=== PATIENT | female | born 1945 | race Caucasian/White ===

== ENCOUNTER 2018-02-04 08:04 | Emergency (ER) | payer OTHER, MEDICARE ==
[2018-02-04] MEDS: ONDANSETRON PF 4 MG/2 ML VIAL. IV (08:51)
[2018-02-04 09:07] LABS: ADD MAN DIFF? NO; BASO % 1 % (0-3); EOS # 0.1 x10^3/uL (0.0-0.7); EOS % 1 % (0-3); HEMATOCRIT 45.6 % (36.0-47.0); HEMOGLOBIN 15.4 g/dL (12.0-15.5); LYMPH # 1.5 x10^3/uL (1.0-4.8); LYMPH % 24 % (24-48); MEAN CORPUSCULAR HEMOGLOBIN 30 pg (25-35); MEAN CORPUSCULAR HGB CONC 34 g/dL (31-37); MEAN CORPUSCULAR VOLUME 89 fL (79-100); MONO # 0.3 x10^3/uL (0.0-1.1); MONO % 4 % (0-9); NEUT # 4.4 x10^3uL (1.8-7.7); NEUT % 70 % (31-73); PLATELET COUNT 176 x10^3/uL (140-400); RED BLOOD COUNT 5.11 x10^6/uL (3.50-5.40); RED CELL DISTRIBUTION WIDTH 14.4 % (11.5-14.5); WHITE BLOOD COUNT 6.3 x10^3/uL (4.0-11.0)
[2018-02-04 09:31] LABS: ANION GAP 15 (6-14); BLOOD UREA NITROGEN 16 mg/dL (7-20); BUN/CREATININE RATIO 13 (6-20); CALCIUM 9.4 mg/dL (8.5-10.1); CARBON DIOXIDE 23 mmol/L (21-32); CHLORIDE 105 mmol/L (98-107); CREATININE 1.2 mg/dL (0.6-1.0); GLUCOSE 178 mg/dL (70-99); POTASSIUM 3.6 mmol/L (3.5-5.1); SODIUM 143 mmol/L (136-145)
[2018-02-04 09:35] LABS: ALBUMIN 3.5 g/dL (3.4-5.0); ALBUMIN/GLOBULIN RATIO 0.9 (1.0-1.7); ALK PHOS 113 U/L (46-116); ALT (SGPT) 39 U/L (14-59); AST (SGOT) 35 U/L (15-37); TOTAL BILIRUBIN 0.8 mg/dL (0.2-1.0); TOTAL PROTEIN 7.4 g/dL (6.4-8.2)
[2018-02-04] MEDS: METOCLOPRAMIDE HCL 10 MG/2 ML VIAL. IV (10:30)
[2018-02-04] MEDS: cloNIDine HCL 0.1 MG TABLET PO (10:31)
[2018-02-04] MEDS: IV NORMAL SALINE 1000ML BAG 1,000 ML IV ×2 (10:33→12:05)
[2018-02-04 11:31] LABS: BILIRUBIN,URINE NEGATIVE (NEG); CLARITY,URINE CLEAR; COLOR,URINE YELLOW; GLUCOSE,URINE NEGATIVE (NEG); NITRITE,URINE NEGATIVE (NEG); PH,URINE 6.5; PROTEIN,URINE 100 mg/dL (NEG-TRACE)
[2018-02-04 11:44] LABS: BACTERIA,URINE FEW /HPF (0-FEW); SQUAMOUS EPITHELIAL CELL,UR MOD /LPF
== END 2018-02-04 13:01 | disposition home or self-care (01) ==
LOC: ER 08:04
DX: N39.0 Urinary tract infection, site not specified (principal); I10 Essential (primary) hypertension; F32.9 Major depressive disorder, single episode, unspecified; E78.00 Pure hypercholesterolemia, unspecified; Z90.49 Acquired absence of other specified parts of digestive tract; Z88.2 Allergy status to sulfonamides; Z88.7 Allergy status to serum and vaccine
CPT/HCPCS: 36415; 70450; 80053; 81001; 85025; 87086; 93005; 96361; 96374; 96375; 99285-25; J2405; J2765; J7030

== ENCOUNTER → 2020-03-09 | Outpatient (CLI) | payer OTHER ==
[2018-02-04 12:50] VITALS: BP 179/100
[~2020-03-09] MED LIST: NITR100C62 PO; ONDA4TAB10 SL
--- NOTE | 2020-03-09 12:40 | CARD ---
MR#: [id number] Date of Study: 03/09/2020 Ordering Physician: SHALINI CAMARGO, Referring Physician: SHALINI CAMARGO Tech: Fransisca Quiñones [facility] APPROVED REPORT EXAM: Two-dimensional and M-mode echocardiogram with Doppler and color Doppler. Other Information Quality : LimitedHR: 72bpm Rhythm : NSRTechnically limited study due to body habitus. INDICATION Hypertension/HCVD Murmur RISK FACTORS Hypertension Obesity Hyperlipidemia 2D DIMENSIONS RVDd3.1 (2.9-3.5cm)Left Atrium(2D)5.5 (1.6-4.0cm) IVSd1.4 (0.7-1.1cm)Aortic Root(2D)3.6 (2.0-3.7cm) LVDd5.0 (3.9-5.9cm)LVOT Diameter2.4 (1.8-2.4cm) PWd1.4 (0.7-1.1cm)LVDs3.2 (2.5-4.0cm) FS (%) 36.5 %SV78.3 ml LVEF(%)66.0 (>50%) Aortic Valve AoV Peak Hunter.151.0cm/sAoV VTI32.1cm AO Peak GR.9.1mmHgLVOT Peak Hunter.130.5cm/s AO Mean GR.4mmHgAVA (VMAX)3.91cm2 Mitral Valve MV E Dhfpzxjf52.5cm/sMV DECEL RPEY103gz MV A Cxvwmusb922.3cm/sE/A Ratio0.7 MV A Plzrkziw611jz Tricuspid Valve TR P. Uzalzukc849me/sTR Peak Gr.29mmHg Pulmonary Vein S1 Wnxtqbjb81.8cm/sD2 Kanqrpgf58.3cm/s PVa grseedpm970lvpv LEFT VENTRICLE The left ventricle is normal size. There is mild concentric left ventricular hypertrophy. The left ve ntricular systolic function is normal and the ejection fraction is within normal range. Estimated ej ection fraction 55-60%. There is normal LV segmental wall motion. The left ventricular diastolic func tion and filling is normal for age. RIGHT VENTRICLE The right ventricle is normal size. There is normal right ventricular wall thickness. The right ventr icular systolic function is normal. ATRIA The left atrium size is normal. The right atrium size is normal. The interatrial septum is intact wit h no evidence for an atrial septal defect or patent foramen ovale as noted on 2-D or Doppler imaging. AORTIC VALVE The aortic valve is normal in structure and function. Doppler and Color Flow revealed no significant aortic regurgitation. There is no significant aortic valvular stenosis. MITRAL VALVE The mitral valve is minimally calcified but opens well. Doppler and Color-flow revealed mild mitral r egurgitation. TRICUSPID VALVE The tricuspid valve is normal in structure and function. Doppler and Color Flow revealed mild tricusp id regurgitation. Estimated PAP 32mmHg. PULMONIC VALVE The pulmonary valve is normal in structure and function. Doppler and Color Flow revealed no pulmonic valvular regurgitation. GREAT VESSELS Mild aorta dilitation. The IVC is normal in size and collapses >50% with inspiration. PERICARDIAL EFFUSION There is no evidence of significant pericardial effusion. Critical Notification Critical Value: No <Conclusion> The left ventricle is normal size. The left ventricular systolic function is normal and the ejection fraction is within normal range. Estimated ejection fraction 55-60%. There is mild concentric left ventricular hypertrophy. Doppler and Color Flow revealed no significant aortic regurgitation. There is no significant aortic valvular stenosis. Doppler and Color-flow revealed mild mitral regurgitation. Doppler and Color Flow revealed mild tricuspid regurgitation. Estimated PAP 32mmHg. Mild aorta dilitation. Signed by : Wil Moreira MD Electronically Approved : 03/09/2020 12:40:19
--- NOTE | 2020-03-09 17:28 | RAD ---
MR#: [id number] Date of Study: 03/09/2020 Ordering Physician: SHALINI CAMARGO, Referring Physician: SHALINI CAMARGO, Tech: Jemima Trujillo RDMS, RVT, RTR APPROVED REPORT Patient Location : OUT-PATIENT Indications Lower Extremity Edema : Bilateral Bilateral Leg Discoloration Greater Saphenous Veins (GSV) Significant venous relux noted in the RIGHT GSV at the following levels : Superficial Femoral Junctio n, Proximal Thigh, Mid Thigh, Distal Thigh, Proximal Calf, Mid Calf, Distal Calf Significant venous relux noted in the LEFT GSV at the following levels : Superficial Femoral Junction , Proximal Thigh, Mid Thigh, Distal Thigh, Proximal Calf, Mid Calf, Distal Calf Findings Grayscale images of the bilateral saphenofemoral junctions are grossly unremarkable. No obvious evid ence of thrombus. The right great saphenous vein measures 4.1 mm and has a maximum reflux time of 1.7 seconds. The lef t great saphenous vein measures a maximum of 3.8 mm and has a maximum reflux time of 3 seconds. Bilateral lesser saphenous veins did not show any evidence of reflux. Critical Notification Critical Value: No <Conclusion> 1. Positive for reflux in the bilateral greater saphenous veins. Signed by : Carlos Alberto Westbrook, Electronically Approved : 03/09/2020 17:28:07
== END ==
LOC: ECHO 10:33
PROVIDERS: ATTEND Internal Medicine Cardiovascular Disease
DX: I08.1 Rheumatic disorders of both mitral and tricuspid valves (principal); R60.9 Edema, unspecified
CPT/HCPCS: 93306; 93970

== ENCOUNTER → 2020-07-04 | Outpatient (CLI) | payer MEDICARE ==
[2018-02-04 12:50] VITALS: BP 179/100
--- NOTE | 2020-07-04 13:54 | RAD ---
Examination: Ultrasound kidneys History :acute renal failure COMPARISON: None available FINDINGS: The right kidney measures 9.4 x 4.0 x 3.7 cm. Thin right renal parenchyma. The left kidney measures 10.1 x 4.0 x 5.5 cm. Examination is limited due to patient body habitus. There is a questionable heterogeneous echogenicity measuring 3.8 x 2.8 x 3.1 cm with some increased vascular flow within could be a left renal mass. The urinary bladder is mildly distended. IMPRESSION: 1. There is a questionable heterogeneous echogenicity measuring 3.8 x 2.8 x 3.1 cm with some increased vascular flow within could be a left renal mass. Recommend CT urogram for further evaluation. Electronically signed by: Ant Mello MD (07/04/2020 1:51 PM) [id number]
== END | disposition home or self-care (01) ==
LOC: US 09:42
PROVIDERS: ATTEND Internal Medicine Nephrology
DX: N17.9 Acute kidney failure, unspecified (principal); N32.89 Other specified disorders of bladder
CPT/HCPCS: 76770

== ENCOUNTER → 2020-10-26 | Outpatient (CLI) | payer MEDICARE ==
[2018-02-04 12:50] VITALS: BP 179/100
--- NOTE | 2020-10-26 17:39 | RAD ---
MR#: [id number] Date of Study: 10/26/2020 Ordering Physician: SHALINI CAMARGO, Referring Physician: SHALINI CAMARGO, Tech: Jemima Trujillo RDMS, RVT, RTR APPROVED REPORT Bilateral Lower Extremity Venous Study for DVT Patient Location: OUT-PATIENT Indications Post Op Bilateral GSV Venaseal Ablation; Venous Insufficiency Findings The bilateral lower extremity deep veins were evaluated for thrombus with color Doppler, spectral and grayscale images. On the right the grayscale images of the common femoral, superficial femoral and popliteal veins do n ot demonstrate any evidence of thrombus and these veins appear to be compressible. The below-knee vei ns were not well visualized but grossly appear to be compressible. Spectral imaging and color Doppler do not reveal any evidence of obstruction to flow with normal respirophasic variation above the knee . Below the knee there is spontaneous flow noted. On the left, the grayscale images of the common femoral, superficial femoral and popliteal veins do n ot demonstrate any evidence of thrombus and these veins appear to be compressible. The below-knee vei ns again were not well visualized but grossly appear to be compressible. Spectral imaging and color D oppler do not reveal any evidence of obstruction to flow with normal respirophasic variation above th e knee. The below-knee veins demonstrate spontaneous flow. Bilateral GSV occluded, consistent with recent ablation. Critical Notification Critical Value: No <Conclusion> 1. No evidence of DVT in the BLE 2. Successful bilateral GSV ablations. Signed by : Carlos Alberto Westbrook, Electronically Approved : 10/26/2020 17:38:29
== END ==
LOC: US 10:34
PROVIDERS: ATTEND Internal Medicine Cardiovascular Disease
DX: I87.323 Chronic venous hypertension (idiopathic) with inflammation of bilateral lower extremity (principal); I87.2 Venous insufficiency (chronic) (peripheral)
CPT/HCPCS: 93970

== ENCOUNTER → 2021-05-25 | Outpatient (CLI) | payer MEDICARE ==
[2018-02-04 12:50] VITALS: BP 179/100
--- NOTE | 2021-05-25 15:27 | RAD ---
EXAM: Renal sonogram. HISTORY: Renal insufficiency. TECHNIQUE: Sonographic imaging the kidneys and bladder was performed. COMPARISON: 07/04/2020. FINDINGS: The right kidney measures 10.5 cm hbzi-jv-rftl. The left kidney measures 12.9 cm pole-to-po le. There is right renal cortical thinning. There is left renal cortical lobulation. The previously s uspected left renal mass is not reproducible on the current exam. The bladder is unremarkable. IMPRESSION: 1. Mild right renal cortical thinning. 2. Left renal cortical lobulation. The previously suspected left renal mass is not appreciated on the current exam. Renal protocol CT or MRI can be performed to confirm benignity if there is clinical co ncern. Electronically signed by: Ginna Hummel MD (05/25/2021 3:25 PM) [id number]
== END ==
LOC: US 14:25
PROVIDERS: ATTEND Urology
DX: N28.9 Disorder of kidney and ureter, unspecified (principal)
CPT/HCPCS: 76770

== ENCOUNTER 2021-11-29 17:32 | Inpatient (IN) | payer MEDICARE ==
[~2021-11-29] VITALS: Ht 170.2 cm; Wt 126.4 kg
--- NOTE | 2021-11-29 18:08 | PHYS DOC ---
Past Medical History Past Medical History: Depression, High Cholesterol, Hypertension Past Surgical History: Cholecystectomy, Other Additional Past Surgical Histo: d&c Smoking Status: Current Every Day Smoker Drug Use: None General Adult EDM: Chief Complaint: SHORTNESS OF BREATH HPI: HPI: 76-year-old female past medical history of chronic venous insufficiency, COPD/tobacco use, hypertension, hyperlipidemia depression, presents to the ED with complaints of shortness of breath, productive cough, bilateral upper chest tightness and one episode of posttussive vomiting, symptoms for the past 4 to 5 days stating " I think I have pneumonia." Is not vaccinated for COVID. On no home oxygen. Per ems was 55% RA. No h/o hospitalizations in the past year. No relief with her inhaler at home. Review of Systems: Review of Systems: Constitutional: Denies fever or chills. [] Eyes: Denies change in visual acuity. [] HENT: Denies nasal congestion or sore throat. [] Respiratory: Denies hemoptysis or increased work of breathing Cardiovascular: Denies syncope or edema. [] GI: Denies abdominal pain, bloody stools or diarrhea. [] : Denies dysuria or hematuria Musculoskeletal: Denies back pain or joint pain or unilateral leg swelling Integument: Denies rash or diaphoresis Neurologic: Denies headache, focal weakness or sensory changes. [] Endocrine: Denies polyuria or polydipsia. [] Lymphatic: Denies swollen glands. [] Psychiatric: Denies depression or anxiety. [] Heart Score: C/O Chest Pain: Yes HEART Score for Chest Pain: HEART Score for Chest Pain Response (Comments) Value History Slighlty/Non-Suspicious 0 ECG Normal 0 Age > 65 2 Risk Factors >3 Risk Factors or Hx CAD 2 Troponin >1-<3x Normal Limit 1 Total 5 Risk Factors: Risk Factors: DM, Current or recent (<one month) smoker, HTN, HLP, family history of CAD, obesity. Risk Scores: Score 0 - 3: 2.5% MACE over next 6 weeks - Discharge Home Score 4 - 6: 20.3% MACE over next 6 weeks - Admit for Clinical Observation Score 7 - 10: 72.7% MACE over next 6 weeks - Early Invasive Strategies Allergies: Allergies: Allergies Coded Allergies Type Severity Reaction Last Updated Verified Sulfa (Sulfonamide Antibiotics) Allergy Intermediate rash 02/04/18 Yes Tetanus Vaccines and Toxoid Allergy Intermediate arm swelling 02/04/18 Yes Physical Exam: PE: Constitutional: No acute distress, afebrile, nontoxic-appearing, obese HENT: Normocephalic, atraumatic, dry mucous membranes, no pharyngeal erythema Eyes: EOMI, conjunctiva normal, no discharge, left eye chemosis Neck: Normal range of motion, supple, Cardiovascular: S1/2 present, regular rhythm Lungs & Thorax: Speaking in full sentences, bilateral equal chest rise, diffuse instrument expiratory wheezing, hypoxic in 80's requiring NC Abdomen: soft, no tenderness, Skin: Warm, dry, no erythema, no rash. [] Back: No tenderness, no CVA tenderness. [] Extremities: No tenderness, no cyanosis, no unilateral lower extremity edema Neurologic: Alert and oriented, normal motor function, normal sensory function, no focal deficits noted. [] Psychologic: Calm mood, normal affect EKG: EKG: Sinus rhythm 79 bpm, left axis deviation, QTC 469, no T wave inversion, no ST elevation or ST depression Radiology/Procedures: Radiology/Procedures: IMAGING REPORT Signed PATIENT: NICA STEPHENS ACCOUNT: [id number] : 1945 LOCATION: ER AGE: 76 SEX: F EXAM STATUS: REG ER ORD. PHYSICIAN: SKINNY PLAZA DO REASON: soa PROCEDURE: PORTABLE CHEST 1V Exam: Chest one view INDICATION: Short of air TECHNIQUE: Frontal view of the chest Comparisons: None FINDINGS: The cardiomediastinal silhouette and pulmonary vessels are within normal limits. Hazy opacity in lungs bilaterally. No pleural effusion IMPRESSION: Findings likely related to pulmonary edema or atypical infectious process. Electronically signed by: Dianne Moran MD (11/29/2021 6:44 PM) [facility] DICTATED and SIGNED BY: DIANNE MORAN MD DATE: 11/29/21 [id number] 0 Course & Med Decision Making: Course & Med Decision Making Pertinent Labs and Imaging studies reviewed. (See chart for details) Concern for hypoxia for nasal cannula, COPD exacerbation, nstemi, acute on gis software developer oscrates kidney disease and elevated D-dimer. Will order venous ultrasound of lower extremities and VQ scan. Will admit to Dr. Tavares for further medical management. Patient stable at time of admission agrees with this plan. I have spoken with the patient and/or caregivers. I have explained the patient's condition, diagnosis and treatment plan based on the information available to me at this time. I have answered the patient's and/or caregivers questions and answered any concerns. The patient and/or caregivers have as good an understanding of the patient's diagnosis, condition and treatment plan as can be expected at this point. The patient has been stabilized within the capability of the emergency department. The patient will be transported for further care and management or will be moved to an observation or inpatient service. I have communicated with the staff or medical practitioner taking over this patient's care. Murphy Disclaimer: Murphy Disclaimer: This electronic medical record was generated, in whole or in part, using a voice recognition dictation system. Departure Departure Impression: Primary Impression: Hypoxemia requiring supplemental oxygen Additional Impressions: COPD exacerbation Acute kidney injury superimposed on chronic kidney disease Elevated d-dimer Person under investigation for COVID-19 NSTEMI (non-ST elevated myocardial infarction) Disposition: ADMITTED INPATIENT Admitting Physician: Miracle Tavares Condition: STABLE Referrals: MIRACLE TAVARES MD (PCP) SKINNY PLAZA DO Nov 29, 2021 18:08
[2021-11-29] MEDS ORDERED: DEXAMETHASONE SOD PHOS 20 MG/5 ML VIAL. IV ONE (18:15)
[2021-11-29] MEDS ORDERED: IPRATRPIUM/ALBUTEROL 0.5/2.5MG 3 ML NEBU. NEB ONE (18:15)
[2021-11-29 18:27] LABS: BASO % 0 % (0-3); EOS % 0 % (0-3); HEMATOCRIT 39.3 % (36.0-47.0); HEMOGLOBIN 13.2 g/dL (12.0-15.5); LYMPH % 10 % (24-48); MEAN CORPUSCULAR HEMOGLOBIN 30 pg (25-35); MEAN CORPUSCULAR HGB CONC 34 g/dL (31-37); MEAN CORPUSCULAR VOLUME 89 fL (79-100); MONO % 10 % (0-9); NEUT # 7.9 x10^3/uL (1.8-7.7); NEUT % 80 % (31-73); PLATELET COUNT 207 x10^3/uL (140-400); RED BLOOD COUNT 4.42 x10^6/uL (3.50-5.40); RED CELL DISTRIBUTION WIDTH 13.9 % (11.5-14.5); WHITE BLOOD COUNT 9.8 x10^3/uL (4.0-11.0)
[2021-11-29] MEDS ORDERED: cefTRIAXone IV Push 1 GM VIAL. IVP ONE (18:30)
[2021-11-29] MEDS ORDERED: ONDANSETRON PF 4 MG/2 ML VIAL. IVP ONE (18:30)
[2021-11-29] MEDS ORDERED: AZITHROMYCIN 250 MG TABLET. PO ONE (18:30)
[2021-11-29] MEDS ORDERED: IV NORMAL SALINE 1000ML BAG 1,000 ML IV ONE (18:30)
[2021-11-29 18:40] LABS: CALCIUM 8.6 mg/dL (8.5-10.1); CREATININE 1.7 mg/dL (0.6-1.0); GFR 29.1; POTASSIUM 3.8 mmol/L (3.5-5.1)
[2021-11-29 18:42] LABS: INFLUENZA A PATIENT NEGATIVE (NEGATIVE); INFLUENZA B PATIENT NEGATIVE (NEGATIVE)
[2021-11-29 18:46] LABS: ALBUMIN 2.6 g/dL (3.4-5.0); ALBUMIN/GLOBULIN RATIO 0.5 (1.0-1.7); TOTAL BILIRUBIN 0.4 mg/dL (0.2-1.0); TOTAL PROTEIN 7.4 g/dL (6.4-8.2)
--- NOTE | 2021-11-29 18:47 | RAD ---
Exam: Chest one view INDICATION: Short of air TECHNIQUE: Frontal view of the chest Comparisons: None FINDINGS: The cardiomediastinal silhouette and pulmonary vessels are within normal limits. Hazy opacity in lungs bilaterally. No pleural effusion IMPRESSION: Findings likely related to pulmonary edema or atypical infectious process. Electronically signed by: Dianne Mayo MD (11/29/2021 6:44 PM) RICA
[2021-11-29] MEDS ORDERED: FUROSEMIDE 40 MG TABLET. PO ONE (19:30)
--- NOTE | 2021-11-29 20:51 | RAD ---
Bilateral lower extremity venous Doppler ultrasound History: Reason: leg swelling Comparison: None. Procedure: Color flow Doppler, Doppler spectral analysis, and 2D images are obtained with and without compression in the area of the common femoral vein, superficial femoral vein - femoral vein junction , main femoral vein (superficial femoral vein) and popliteal vein. Veins of the proximal calf are als o imaged. Findings: There is normal color flow, augmentation, and compressibility of all visualized vein segments. No kenan dence of deep venous thrombus is present. IMPRESSION: No evidence of right or left lower extremity deep venous thrombosis. Electronically signed by: Naga Hartmann MD (11/29/2021 8:49 PM) [facility]
[2021-11-29 21:22] LABS: BASE EXCESS ABG 0 mmol/L (-3-3); HCO3 ABG 29 mmol/L (21-28); PO2 ABG 63 mmHg (65-108); SAT O2 ABG 90 % (92-99)
[2021-11-29 21:23] LABS: PCO2 ABG 70 mmHg (35-46)
[2021-11-29 22:06] VITALS: BP 184/93
[2021-11-29] MEDS ORDERED: CYCL10TA19 PO (22:52)
[2021-11-29] MEDS ORDERED: MOME13HF2 IH (22:52)
[2021-11-29] MEDS ORDERED: LEVO137T3 PO (22:52)
[2021-11-29] MEDS ORDERED: MIRT-7 PO (22:52)
[2021-11-29] MEDS ORDERED: AMLO-187 PO (22:52)
[2021-11-29] MEDS ORDERED: SERT-268 PO (22:52)
[2021-11-29] MEDS ORDERED: ATOR20TA58 PO (22:52)
[2021-11-29] MEDS ORDERED: PROVENTIL HFA6.7 G2 INH (22:52)
[2021-11-29] MEDS ORDERED: CLON0.5T PO (22:52)
[2021-11-29] MEDS ORDERED: ALBUTEROL SULFATE 8GM INHALER. INH PRN (23:45)
[2021-11-30 02:27] VITALS: BP_SYST 184; BP_SYST 196; BP_DIAS 93; BP_DIAS 94
[2021-11-30 07:00] VITALS: BP 176/92
--- NOTE | 2021-11-30 07:42 | EKG ---
[facility] [address] [place] [address] Test Date: 2021-11-29 Test Time: 17:59:22 Pat Name: NICA STEPHENS Department: Room: [facility] Gender: F Pharmacy Clinical Specialist: : 1945 Requested By: SKINNY PLAZA Order Number: [id number] Reading MD: Carlos Alberto Westbrook MD Measurements Intervals Marquez Rate: 79 P: -12 SD: 170 QRS: -22 QRSD: 108 T: 126 QT: 408 QTc: 469 Interpretive Statements SINUS RHYTHM Electronically Signed On 12-04-2021 11:16:51 [employer] by Carlos Alberto Westbrook MD
[2021-11-30] MEDS: ALBUTEROL SULFATE 8GM INHALER. INH SCH ×4 (08:00→19:59)
[2021-11-30] MEDS: BUDESONIDE 0.5 MG/2 ML NEBU. NEB SCH ×2 (08:00→19:59)
[2021-11-30] MEDS: CYCLOBENZAPRINE 10 MG TABLET. PO SCH ×4 (08:46→20:50)
[2021-11-30] MEDS: clonazePAM 0.5 MG TABLET PO SCH ×2 (08:46→20:50)
[2021-11-30] MEDS: SERTRALINE 50 MG TABLET. PO SCH (08:47)
[2021-11-30] MEDS: LEVOTHYROXINE 137 MCG TABLET PO SCH (10:07)
[2021-11-30 10:14] VITALS: BP 155/76
[2021-11-30] MEDS ORDERED: FUROSEMIDE 40 MG/4 ML VIAL. IVP ONE (10:30)
--- NOTE | 2021-11-30 10:36 | PDOC2 ---
THONY LOW BEVELER 11/30/21 1035: CARDIAC CONSULT DATE OF CONSULT Date of Consult DATE: 11/30/21 TIME: 10:09 REASON FOR CONSULT Reason for Consult: NSTEMI REFERRING PHYSICIAN Referring Physician: [facility] SOURCE Source: Chart review, Patient HISTORY OF PRESENT ILLNESS HISTORY OF PRESENT ILLNESS This is a 76 yo female admitted for complains of SOA and productive cough. Also had some chest pain and vomiting. She is not vaccinated for covid-19. She was then noted to be hypoxic on RA with 55% O2 sat. Denies any chest pain and feels better now overnight after bipap. No significnat leg swelling and no fever. She has been coughing thick yellow sputum. No prior exposure to covid-19 and she is not vaccinated for covid-19. PAST MEDICAL HISTORY Cardiovascular: HTN, Hyperlipidemia, Other (venous insuffiicency) Psych: Depression Musculoskeletal: Osteoarthritis Renal/: Chronic renal insuff Dermatology: Other (sskin CA unknwon) PAST SURGICAL HISTORY Past Surgical History: Cholecystectomy, Other (D & C; venous ablation) FAMILY HISTORY Family History: Coronary Artery Disease SOCIAL HISTORY Smoke: <1 pack per day ALCOHOL: none Drugs: None Lives: with Family CURRENT MEDICATIONS CURRENT MEDICATIONS Current Medications Medications (Trade) Dose Ordered Sig/Eitan Route PRN Reason Start Time Stop Time Status Last Admin Dose Admin Dexamethasone Sodium Phosphate (Decadron) 10 mg 1X ONCE IV 11/29/21 18:15 11/29/21 18:16 DC 11/29/21 19:31 Albuterol/ Ipratropium (Duoneb) 9 ml 1X ONCE NEB 11/29/21 18:15 11/29/21 18:16 DC 11/29/21 18:35 Ceftriaxone Sodium (Rocephin) 1 gm 1X ONCE IVP 11/29/21 18:30 11/29/21 18:31 DC 11/29/21 19:31 Azithromycin (Zithromax) 500 mg 1X ONCE PO 11/29/21 18:30 11/29/21 18:31 DC 11/29/21 19:32 Sodium Chloride 1,000 ml @ 1,000 mls/hr 1X ONCE IV 11/29/21 18:30 11/29/21 19:29 DC 11/29/21 19:32 Ondansetron HCl (Zofran) 4 mg 1X ONCE IVP 11/29/21 18:30 11/29/21 18:31 DC 11/29/21 19:31 Furosemide (Lasix) 40 mg 1X ONCE PO 11/29/21 19:30 11/29/21 19:31 DC 11/29/21 19:32 Amlodipine Besylate (Norvasc) 10 mg DAILY PO 11/30/21 09:00 11/30/21 08:46 Clonazepam (KlonoPIN) 0.5 mg BID PO 11/30/21 09:00 11/30/21 08:46 Cyclobenzaprine HCl (Flexeril) 10 mg TID PO 11/30/21 09:00 11/30/21 08:46 Levothyroxine Sodium (Synthroid) 137 mcg DAILYAC PO 11/30/21 07:30 11/30/21 10:07 Sertraline HCl (Zoloft) 150 mg DAILY PO 11/30/21 09:00 11/30/21 08:47 ALLERGIES ALLERGIES: Coded Allergies: Sulfa (Sulfonamide Antibiotics) (Verified Allergy, Intermediate, rash, 02/04/18) Tetanus Vaccines and Toxoid (Verified Allergy, Intermediate, arm swelling, 02/04/18) ROS Review of System 14 point ROS evaluated with pertinent positives noted per HPI PHYSICAL EXAM General: Alert, Oriented X3, Cooperative, No acute distress HEENT: Atraumatic, Mucous membr. moist/pink Lungs: Other (diffuse rhonchi) Abdomen: Soft, No tenderness Extremities: No cyanosis, Other (+1 bilateral LE pitting edema) Skin: No breakdown, No significant lesion Neuro: Normal speech, Sensation intact Psych/Mental Status: Mental status NL, Mood NL MUSCULOSKELETAL: Osteoarthritic changes both hands VITALS/I&O VITALS/I&O: Vital Signs Date Time Temp Pulse Resp B/P (MAP) Pulse Ox O2 Delivery O2 Flow Rate FiO2 11/30/21 08:46 88 176/92 11/30/21 08:00 Bi-pap 11/30/21 07:00 98.1 24 99 98.1 11/29/21 22:06 4.0 I & O 11/29/21 11/29/21 11/30/21 15:00 23:00 07:00 Intake Total 222 ml 0 ml Output Total 400 ml Balance 222 ml -400 ml LABS Lab: Laboratory Tests Test 11/29/21 18:10 11/29/21 20:30 White Blood Count 9.8 x10^3/uL (4.0-11.0) Red Blood Count 4.42 x10^6/uL (3.50-5.40) Hemoglobin 13.2 g/dL (12.0-15.5) Hematocrit 39.3 % (36.0-47.0) Mean Corpuscular Volume 89 fL (79-100) Mean Corpuscular Hemoglobin 30 pg (25-35) Mean Corpuscular Hemoglobin Concent 34 g/dL (31-37) Red Cell Distribution Width 13.9 % (11.5-14.5) Platelet Count 207 x10^3/uL (140-400) Neutrophils (%) (Auto) 80 % (31-73) H Lymphocytes (%) (Auto) 10 % (24-48) L Monocytes (%) (Auto) 10 % (0-9) H Eosinophils (%) (Auto) 0 % (0-3) Basophils (%) (Auto) 0 % (0-3) Neutrophils # (Auto) 7.9 x10^3/uL (1.8-7.7) H Lymphocytes # (Auto) 1.0 x10^3/uL (1.0-4.8) Monocytes # (Auto) 1.0 x10^3/uL (0.0-1.1) Eosinophils # (Auto) 0.0 x10^3/uL (0.0-0.7) Basophils # (Auto) 0.0 x10^3/uL (0.0-0.2) D-Dimer (Alfreda) 1.63 ug/mlFEU (0.00-0.50) H Sodium Level 143 mmol/L (136-145) Potassium Level 3.8 mmol/L (3.5-5.1) Chloride Level 103 mmol/L (98-107) Carbon Dioxide Level 28 mmol/L (21-32) Anion Gap 12 (6-14) Blood Urea Nitrogen 17 mg/dL (7-20) Creatinine 1.7 mg/dL (0.6-1.0) H Estimated GFR (Cockcroft-Gault) 29.1 BUN/Creatinine Ratio 10 (6-20) Glucose Level 96 mg/dL (70-99) Calcium Level 8.6 mg/dL (8.5-10.1) Total Bilirubin 0.4 mg/dL (0.2-1.0) Aspartate Amino Transferase (AST) 36 U/L (15-37) Alanine Aminotransferase (ALT) 29 U/L (14-59) Alkaline Phosphatase 147 U/L (46-116) H Creatine Kinase 134 U/L (26-192) Troponin I High Sensitivity 74 ng/L (4-50) H DX-Zlf-M-Type Natriuretic Peptide 4536 pg/mL (0-449) H Total Protein 7.4 g/dL (6.4-8.2) Albumin 2.6 g/dL (3.4-5.0) L Albumin/Globulin Ratio 0.5 (1.0-1.7) L Influenza Type A Antigen Negative (NEGATIVE) Influenza Type B Antigen Negative (NEGATIVE) SARS-CoV-2 Antigen (Rapid) Negative (NEGATIVE) O2 Saturation 90 % (92-99) L Arterial Blood pH 7.24 (7.35-7.45) L Arterial Blood pCO2 at Patient Temp 70 mmHg (35-46) *H Arterial Blood pO2 at Patient Temp 63 mmHg (65-108) L Arterial Blood HCO3 29 mmol/L (21-28) H Arterial Blood Base Excess 0 mmol/L (-3-3) Laboratory Tests 11/29/21 18:10 Laboratory Tests 11/29/21 18:10 ECHOCARDIOGRAM ECHOCARDIOGRAM <Conclusion> The left ventricle is normal size. The left ventricular systolic function is normal and the ejection fraction is within normal range. Estimated ejection fraction 55-60%. There is mild concentric left ventricular hypertrophy. Doppler and Color Flow revealed no significant aortic regurgitation. There is no significant aortic valvular stenosis. Doppler and Color-flow revealed mild mitral regurgitation. Doppler and Color Flow revealed mild tricuspid regurgitation. Estimated PAP 32mmHg. Mild aorta dilitation. 03/09/2020 12:40:19 ASSESSMENT/PLAN ASSESSMENT/PLAN 1. Acute respiratory failure with hypoxia/hypercapnea with COPD 2. AECOPD 3. Acute on chronic diastolic CHF: better compensated 4. HTN: mildly labile 5. HLP 6. Morbid obesity 7. Chronic venous insufficiency Recommendations 1. x1 Lasix. Consult pulmonary. Antibiotics per ID 2. She continues to smoke tobacco and does not utilize O2 at home. Will need ANNABELLE workup. Bipap PRN 3. Continue home BP meds and statin 4. ASA 5. Repeat trop, BMP 6. Will consider outpt MPI and outpt TTE SHALINI CAMARGO MD 11/30/21 1358: CARDIAC CONSULT ASSESSMENT/PLAN ASSESSMENT/PLAN Patient seen and examined. Agree with SYSTEMS INTEGRATION ENGINEER's assessment and plan. Acute respiratory failure secondary to combination of acute COPD exacerbation and mild acute on chronic diastolic heart failure. Acute on chronic diastolic heart failure better compensated with diuresis. Continue treatment of COPD exacerbation per pulmonary team. Non-STEMI most probably demand ischemia. Plan outpatient 2D echo and ischemic evaluation. Thank you for your consultation THONY LOW APRN Nov 30, 2021 10:35 SHALINI CAMARGO MD Nov 30, 2021 17:08
[2021-11-30 11:59] LABS: CALCIUM 8.7 mg/dL (8.5-10.1); CREATININE 1.8 mg/dL (0.6-1.0); GFR 27.3
--- NOTE | 2021-11-30 12:40 | CONS ---
DATE OF CONSULTATION: 11/30/2021 PULMONARY CONSULTATION ATTENDING PHYSICIAN: Dr. Tavares. REASON FOR CONSULTATION: Respiratory failure. HISTORY OF PRESENT ILLNESS: The patient is a 76-year-old obese female with a BMI of 46 and a smoker for 50 years and still smokes cigarettes. She was brought into the hospital with dyspnea. She has lower extremity edema. She has some chest pain as well as a dry cough. She was hypoxic on room air with saturation of 55%. She was overnight, placed on BiPAP. She feels better. Her chest x-ray was consistent with interstitial edema. Her ABG showed a pH of 7.24, pCO2 of 70 and a pO2 of 63 with a bicarbonate of 29. The patient denies any headaches. No nausea, vomiting, no diarrhea, no dysuria. No focal weakness. Consultation requested for further evaluation and management. Her venous Dopplers of the lower extremities showed no DVT. PAST MEDICAL HISTORY: Significant for history of hypertension, hyperlipidemia. History of COPD, could be severe. History of suspected obesity hypoventilation syndrome, history of depression, osteoarthritis, CKD. PAST SURGICAL HISTORY: Cholecystectomy. FAMILY HISTORY: Coronary artery disease. SOCIAL HISTORY: Smoker, 1 pack per day for 50 years and still smokes. ALLERGIES: SULFA, TETANUS VACCINES AND TOXOID. MEDICATIONS: Reviewed as listed in the MRAD. REVIEW OF SYSTEMS: Twelve-point review of system obtained. Pertinent positives discussed in my present illness, otherwise noncontributory. All systems that were negative were reviewed as well. PHYSICAL EXAMINATION: VITAL SIGNS: Reviewed. She is awake, following commands. Blood pressure is 155/76. Afebrile. Pulse oximetry is 96% on nasal cannula. NECK: Supple. LUNGS: With occasional wheezes anteriorly. CARDIOVASCULAR: With a regular rate. ABDOMEN: Soft, obese. EXTREMITIES: With 2+ pitting edema. LABORATORY DATA: Labs are reviewed. Influenza screen negative. COVID rapid negative. BUN 20, creatinine 1.8. Troponin 100. TSH 0.3. D-dimer 1.63. White cell count 9.8, hemoglobin is 13.3. IMPRESSION: 1. Acute on chronic hypercapnic and hypoxic respiratory failure secondary to acute diastolic congestive heart failure, acute exacerbation of chronic obstructive pulmonary disease and a component of acute cor pulmonale. 2. Abnormal chest x-ray with bilateral interstitial infiltrates, more suggestive of congestive heart failure. 3. Fifty years of tobaccoism, likely underlying chronic obstructive pulmonary disease with chronic hypercapnia. 4. Suspected obesity hypoventilation syndrome. 5. The patient is not vaccinated for COVID. Clinically, less likely COVID. 6. Chronic kidney disease. 7. Clinically less likely pneumonia. RECOMMENDATIONS: 1. Discussed with patient as well as Dr. Slaughter. We will continue present diuresis. 2. Follow up chest x-ray to see an improvement in interstitial infiltrates. 3. Okay with discontinuation of antibiotics. 4. Her echocardiogram recently on 11/27 showed an EF of 50% and mild to moderate mitral regurgitation. 5. Monitor renal function. 6. Continue bronchodilators including budesonide and albuterol. 7. Smoking cessation counseling provided. She does not appear to be interested in quitting cigarettes. 8. We will follow along with you. YOGESH DR: Baljit TID: [id number]
--- NOTE | 2021-11-30 13:22 | HP ---
DATE OF SERVICE: 11/30/2021 ADMIT DATE: 11/29/2021 ADMISSION HISTORY AND PHYSICAL CHIEF COMPLAINT AND HISTORY OF PRESENT ILLNESS: This 76-year-old female is well known from followup in my office. The patient was short of breath for 5 days with somewhat of a cough, eventually getting bad enough to call ambulance. Per EMS, her O2 sat was 55% on the field, was placed on oxygen and was better by the time of arrival to the Emergency Room. She was diffusely wheezing, moving very little air, felt to have an exacerbation of COPD, but complicated with findings on chest x-ray consistent with pulmonary edema or atypical infection. Also had elevated BNP consistent with fluid overload. She is initially COVID negative, unvaccinated. She is influenza negative. Creatinine was up to 1.7. BNP was 4536. Troponin was elevated at 74 and Cardiology has been consulted. White count was normal and reference on the blood gas, the amount of oxygen that she was on at the time shows a respiratory acidosis with a pH of 7.24, pCO2 of 70 and pO2 of 63. I did discuss with the Emergency Room during the night, they could not tell me how much oxygen she was on at that time. Nonetheless, BiPAP and Pulmonary consults were ordered overnight due to the CO2 retention. PAST MEDICAL HISTORY: Remarkable for hypertension, hyperlipidemia, depression. PAST SURGICAL HISTORY: Remarkable for cholecystectomy, D and C. SOCIAL HISTORY: She is an everyday smoker, does not abuse alcohol or drugs. ALLERGIES: INCLUDE SULFA AND TETANUS VACCINE. MEDICATIONS: Brought with the patient, listed on the computer have been addressed. FAMILY HISTORY: Noncontributory. REVIEW OF SYSTEMS: GENERAL: Remarkable for her feeling a little better and a little less short of breath this morning. She is awake, alert and oriented. She is a well-developed, well-nourished female on BiPAP, appears relatively comfortable. VITAL SIGNS: Remarkable for elevated blood pressures, and home meds will be restarted. She is afebrile. HEAD, EYES, EARS, NOSE AND THROAT: Remarkable for the BiPAP. NECK: Supple, without adenopathy or thyromegaly. CHEST: Reveals diffuse expiratory wheezing. HEART: Regular rate and rhythm without S3, S4 or murmur. ABDOMEN: Soft, nontender, without hepatosplenomegaly or masses. EXTREMITIES: Without cyanosis, clubbing, significant edema. NEUROLOGIC: She is intact. IMPRESSION: 1. Acute hypoxic hypercarbic respiratory failure with exacerbation of chronic obstructive pulmonary disease versus congestive heart failure . 2. Acute kidney injury. 3. Elevated troponin. PLAN: Dose of Lasix was given during the night. I will wait for Cardiology on any further. Pulmonary has been consulted. She will remain on BiPAP at this point in time. Further antibiotics and steroids. We will defer to Pulmonary. SUDHA/JUSTA DR: Connor TID: [id number]
--- NOTE | 2021-11-30 13:58 | NUR ---
SS following for discharge planning. SS reviewed pt chart and discussed with pt RN. Pt is currently requiring oxygen at four liters nasal canula. COVID19 negative. Cardiology and Pulmonology consulted. No home oxygen. Pt on IV Lasix. SS will continue to follow for discharge planning.
[2021-11-30 15:00] VITALS: BP 172/96
[2021-11-30] MEDS ORDERED: FUROSEMIDE 20 MG/2 ML VIAL. IVP ONE (16:30)
[2021-11-30 19:00] VITALS: BP 137/91
[2021-11-30] MEDS: MIRTAZAPINE 15 MG TABLET PO SCH (20:50)
[2021-11-30] MEDS: ATORVASTATIN CALCIUM 20 MG TABLET PO SCH (20:50)
[2021-11-30 22:18] VITALS: BP 144/96
[2021-12-01 02:25] VITALS: BP 188/97
[2021-12-01 07:00] VITALS: BP 173/84
[2021-12-01] MEDS: BUDESONIDE 0.5 MG/2 ML NEBU. NEB SCH ×2 (07:23→20:00)
[2021-12-01] MEDS: CYCLOBENZAPRINE 10 MG TABLET. PO SCH ×3 (08:28→20:40)
[2021-12-01] MEDS: SERTRALINE 50 MG TABLET. PO SCH (08:28)
[2021-12-01] MEDS: LEVOTHYROXINE 137 MCG TABLET PO SCH (08:30)
[2021-12-01] MEDS: clonazePAM 0.5 MG TABLET PO SCH ×2 (08:30→20:38)
[2021-12-01] MEDS: ALBUTEROL SULFATE 8GM INHALER. INH SCH ×4 (08:31→20:00)
--- NOTE | 2021-12-01 08:31 | RAD ---
XR CHEST 1V History: Congestive heart failure Comparison: 11/29/2021 Technique: Portable AP radiograph of the chest. Findings: The lungs are adequately inflated. No pleural effusion or pneumothorax. Hazy bilateral airspace opaci ties appear improved from comparison exam. Cardiac mediastinal silhouette is normal in size. Mildly p rominent pulmonary vasculature. Osseous structures and soft tissues are unremarkable. Impression: 1. Improving bilateral infiltrates. Electronically signed by: John Fritz MD (12/01/2021 8:28 AM) [id number]
--- NOTE | 2021-12-01 10:40 | PDOC ---
PULMONARY PROGRESS NOTES DATE: 12/01/21 TIME: 10:38 Subjective Feels much better. Vitals Vital Signs Date Time Temp Pulse Resp B/P (MAP) Pulse Ox O2 Delivery O2 Flow Rate FiO2 12/01/21 08:29 173/84 12/01/21 08:00 Nasal Cannula 4.0 12/01/21 07:00 97.5 87 18 96 97.5 General: Alert, No acute distress Lungs: Clear Cardiovascular: S1 Abdomen: Soft, Other (Obese) Extremities: Other (1+ pitting edema) Labs Laboratory Tests Test 11/29/21 18:10 11/29/21 20:30 11/30/21 11:16 White Blood Count 9.8 x10^3/uL (4.0-11.0) Red Blood Count 4.42 x10^6/uL (3.50-5.40) Hemoglobin 13.2 g/dL (12.0-15.5) Hematocrit 39.3 % (36.0-47.0) Mean Corpuscular Volume 89 fL (79-100) Mean Corpuscular Hemoglobin 30 pg (25-35) Mean Corpuscular Hemoglobin Concent 34 g/dL (31-37) Red Cell Distribution Width 13.9 % (11.5-14.5) Platelet Count 207 x10^3/uL (140-400) Neutrophils (%) (Auto) 80 % (31-73) Lymphocytes (%) (Auto) 10 % (24-48) Monocytes (%) (Auto) 10 % (0-9) Eosinophils (%) (Auto) 0 % (0-3) Basophils (%) (Auto) 0 % (0-3) Neutrophils # (Auto) 7.9 x10^3/uL (1.8-7.7) Lymphocytes # (Auto) 1.0 x10^3/uL (1.0-4.8) Monocytes # (Auto) 1.0 x10^3/uL (0.0-1.1) Eosinophils # (Auto) 0.0 x10^3/uL (0.0-0.7) Basophils # (Auto) 0.0 x10^3/uL (0.0-0.2) D-Dimer (Alfreda) 1.63 ug/mlFEU (0.00-0.50) Sodium Level 143 mmol/L (136-145) 143 mmol/L (136-145) Potassium Level 3.8 mmol/L (3.5-5.1) 4.0 mmol/L (3.5-5.1) Chloride Level 103 mmol/L (98-107) 103 mmol/L (98-107) Carbon Dioxide Level 28 mmol/L (21-32) 32 mmol/L (21-32) Anion Gap 12 (6-14) 8 (6-14) Blood Urea Nitrogen 17 mg/dL (7-20) 20 mg/dL (7-20) Creatinine 1.7 mg/dL (0.6-1.0) 1.8 mg/dL (0.6-1.0) Estimated GFR (Cockcroft-Gault) 29.1 27.3 BUN/Creatinine Ratio 10 (6-20) Glucose Level 96 mg/dL (70-99) 124 mg/dL (70-99) Calcium Level 8.6 mg/dL (8.5-10.1) 8.7 mg/dL (8.5-10.1) Total Bilirubin 0.4 mg/dL (0.2-1.0) Aspartate Amino Transf (AST/SGOT) 36 U/L (15-37) Alanine Aminotransferase (ALT/SGPT) 29 U/L (14-59) Alkaline Phosphatase 147 U/L (46-116) Creatine Kinase 134 U/L (26-192) Troponin I High Sensitivity 74 ng/L (4-50) 100 ng/L (4-50) CN-Ltv-M-Type Natriuretic Peptide 4536 pg/mL (0-449) Total Protein 7.4 g/dL (6.4-8.2) Albumin 2.6 g/dL (3.4-5.0) Albumin/Globulin Ratio 0.5 (1.0-1.7) Influenza Type A Antigen Negative (NEGATIVE) Influenza Type B Antigen Negative (NEGATIVE) SARS-CoV-2 Antigen (Rapid) Negative (NEGATIVE) O2 Saturation 90 % (92-99) Arterial Blood pH 7.24 (7.35-7.45) Arterial Blood pCO2 at Patient Temp 70 mmHg (35-46) Arterial Blood pO2 at Patient Temp 63 mmHg (65-108) Arterial Blood HCO3 29 mmol/L (21-28) Arterial Blood Base Excess 0 mmol/L (-3-3) Thyroid Stimulating Hormone (TSH) 0.340 uIU/mL (0.358-3.74) Laboratory Tests Test 11/30/21 11:16 Sodium Level 143 mmol/L (136-145) Potassium Level 4.0 mmol/L (3.5-5.1) Chloride Level 103 mmol/L (98-107) Carbon Dioxide Level 32 mmol/L (21-32) Anion Gap 8 (6-14) Blood Urea Nitrogen 20 mg/dL (7-20) Creatinine 1.8 mg/dL (0.6-1.0) Estimated GFR (Cockcroft-Gault) 27.3 Glucose Level 124 mg/dL (70-99) Calcium Level 8.7 mg/dL (8.5-10.1) Troponin I High Sensitivity 100 ng/L (4-50) Thyroid Stimulating Hormone (TSH) 0.340 uIU/mL (0.358-3.74) Medications Active Scripts Medications Dose Route/Sig Max Daily Dose Days Date Category Atorvastatin Calcium 20 Mg Tablet 20 Mg PO HS 11/29/21 Reported Klonopin (Clonazepam) 0.5 Mg Tablet 0.5 Mg PO BID 11/29/21 Reported Cyclobenzaprine Hcl 10 Mg Tablet 10 Mg PO TID 11/29/21 Reported Mirtazapine 15 Mg Tablet 1 Tab PO QHS 11/29/21 Reported Dulera 100 Mcg/5 Mcg Inhaler (Mometasone/Formoterol) 13 Gm Hfa.aer.ad 2 Puff IH BID 11/29/21 Reported Proventil Hfa (Albuterol Sulfate) 6.7 Gm Hfa.aer.ad 1 Puff INH PRN Q6HRS PRN 11/29/21 Reported Levothyroxine Sodium 137 Mcg Tablet 137 Mcg PO DAILYAC 11/29/21 Reported Amlodipine Besylate 10 Mg Tablet 10 Mg PO DAILY 11/29/21 Reported Sertraline Hcl 100 Mg Tablet 150 Mg PO DAILY 11/29/21 Reported Comments Chest x-ray done today 12/01/2021 reviewed Resolution of interstitial edema Impression . 1. Acute on chronic hypercapnic and hypoxic respiratory failure secondary to acute diastolic congestive heart failure, acute exacerbation of chronic obstructive pulmonary disease and a component of acute cor pulmonale. 2. Abnormal chest x-ray with bilateral interstitial infiltrates, more suggestive of congestive heart failure. Resolved with diuresis. 3. Fifty years of tobaccoism, likely underlying chronic obstructive pulmonary disease with chronic hypercapnia. 4. Suspected obesity hypoventilation syndrome. 5. The patient is not vaccinated for COVID. Clinically, less likely COVID. 6. Chronic kidney disease. 7. Clinically less likely pneumonia. Plan . RECOMMENDATIONS: 1. Patient has responded to diuresis. 2. Follow up chest x-ray shows significant improvement in interstitial infiltrates. 3. Okay with discontinuation of antibiotics. 4. Will need a 6-minute walk test before discharge 5. Monitor renal function. 6. Continue bronchodilators including budesonide and albuterol. 7. Smoking cessation counseling provided. She does not appear to be interested in quitting cigarettes. 8. Okay with discharge today LILI MALLORY MD Dec 01, 2021 10:40
[2021-12-01 11:00] VITALS: BP 180/87
--- NOTE | 2021-12-01 12:25 | NUR ---
SS following up with discharge planning. SS reviewed pt chart and discussed with pt RN. Pt is currently requiring oxygen at four liters nasal canula. COVID19 negative. Pt has no home oxygen. Cardiology and Pulmonology following. SS will continue to follow for discharge planning.
[2021-12-01 15:00] VITALS: BP 159/92
--- NOTE | 2021-12-01 16:13 | PDOC ---
PROGRESS NOTES Date of Service: DATE: 12/01/21 TIME: 16:13 Subjective Subjective Feeling better today with improvement in dyspnea Objective Objective Vital Signs Date Time Temp Pulse Resp B/P (MAP) Pulse Ox O2 Delivery O2 Flow Rate FiO2 12/01/21 15:00 98.1 83 18 159/92 (114) 94 Nasal Cannula 4.0 98.1 Intake and Output 12/01/21 07:00 Intake Total 1272 ml Output Total 2850 ml Balance -1578 ml Intake Oral 1272 ml Output Urine Total 2850 ml # Voids 1 # Bowel Movements 1 Physical Exam Abdomen: Soft, No tenderness Extremities: No cyanosis, Other (+1 bilateral LE pitting edema) General: Alert, Oriented X3, Cooperative, No acute distress HEENT: Atraumatic, Mucous membr. moist/pink Lungs: Other (diffuse rhonchi) MUSCULOSKELETAL: Osteoarthritic changes both hands Neuro: Normal speech, Sensation intact Psych/Mental Status: Mental status NL, Mood NL Skin: No breakdown, No significant lesion Assessment Assessment 1. Acute respiratory failure secondary to combination of acute COPD exacerbation and acute on chronic diastolic heart failure 2. AECOPD 3. Acute on chronic diastolic CHF: better compensated with diuresis 4. HTN: Blood pressure elevated 5. HLP 6. Non-STEMI probably demand ischemia 7. Chronic venous insufficiency Recommendations 1. Continue treatment per pulmonary 2. Continue amlodipine and add losartan for better blood pressure control 3. Plan outpatient 2D echo and ischemic evaluation Plan Plan of Care Problems Medical Problems: (1) Acute kidney injury superimposed on chronic kidney disease Status: Acute (2) COPD exacerbation Status: Acute (3) Elevated d-dimer Status: Acute (4) Hypoxemia requiring supplemental oxygen Status: Acute (5) NSTEMI (non-ST elevated myocardial infarction) Status: Acute (6) Person under investigation for COVID-19 Status: Acute Comment Review of Relevant I have reviewed the following items zakiya (where applicable) has been applied. Medications Current Medications Atorvastatin Calcium (Lipitor) 20 mg HS PO Last administered on 11/30/21at 20:50; Start 11/30/21 at 21:00 Furosemide (Lasix) 20 mg 1X ONCE IVP Last administered on 11/30/21at 17:05; Start 11/30/21 at 16:30; Stop 11/30/21 at 16:31; Status DC Furosemide (Lasix) 40 mg 1X ONCE IVP Last administered on 12/01/21at 16:07; Start 12/01/21 at 16:30; Stop 12/01/21 at 16:31 Mirtazapine (Remeron) 15 mg QHS PO Last administered on 11/30/21at 20:50; Start 11/30/21 at 21:00 Vitals/I & O Vital Sign - Last 24 Hours 11/30/21 11/30/21 11/30/21 11/30/21 19:00 20:00 20:01 22:18 Temp 97.5 97.5 97.5 97.5 Pulse 93 88 Resp 20 20 B/P (MAP) 137/91 (106) 144/96 (112) Pulse Ox 98 99 98 O2 Delivery Nasal Cannula Nasal Cannula Nasal Cannula O2 Flow Rate 4.0 4.0 4.0 12/01/21 12/01/21 12/01/21 12/01/21 02:25 07:00 08:00 08:29 Temp 98.2 97.5 98.2 97.5 Pulse 90 87 Resp 20 18 B/P (MAP) 188/97 (127) 173/84 (113) 173/84 Pulse Ox 94 96 O2 Delivery Nasal Cannula Nasal Cannula Nasal Cannula O2 Flow Rate 4.0 4.0 4.0 12/01/21 12/01/21 11:00 15:00 Temp 97.8 98.1 97.8 98.1 Pulse 91 83 Resp 18 18 B/P (MAP) 180/87 (118) 159/92 (114) Pulse Ox 95 94 O2 Delivery Nasal Cannula Nasal Cannula O2 Flow Rate 4.0 4.0 Intake and Output 11/30/21 11/30/21 12/01/21 15:00 23:00 07:00 Intake Total 472 ml 800 ml Output Total 250 ml 1650 ml 950 ml Balance -250 ml -1178 ml -150 ml SHALINI CAMARGO MD Dec 01, 2021 16:13
--- NOTE | 2021-12-01 16:15 | PDOC ---
CARDIO Progress Notes Date and Time Date of Service 12/01/2021 Time of Evaluation 1600 Subjective Subjective: No Chest Pain, No shortness of breath, No Palpitations Vitals Vitals Vital Signs Date Time Temp Pulse Resp B/P (MAP) Pulse Ox O2 Delivery O2 Flow Rate FiO2 12/01/21 15:00 98.1 83 18 159/92 (114) 94 Nasal Cannula 4.0 98.1 Weight Weight [ ] Input and Output Intake and Output Intake and Output 12/01/21 07:00 Intake Total 1272 ml Output Total 2850 ml Balance -1578 ml Intake Oral 1272 ml Output Urine Total 2850 ml # Voids 1 # Bowel Movements 1 Physical Exam HEENT: Neck Supple W Full Motion Chest: Symmetric LUNGS: Other (faint diffuse wheeze) Heart: RRR (SR) Abdomen: Soft N/T Extremities: Other (1+ bilateral LE piptting edema) Neurology: alert, oriented, follow commands Assessment Assessment 1. Acute respiratory failure with hypoxia/hypercapnea with COPD 2. AECOPD 3. Acute on chronic diastolic CHF: better compensated 4. HTN: mildly labile 5. HLP 6. Morbid obesity 7. Chronic venous insufficiency 8. Possible CKD3 Recommendations 1. Lasix therapy, Antibiotics per PCP 2. She continues to smoke tobacco and does not utilize O2 at home. Will need ANNABELLE workup. Bipap PRN 3. Continue home BP meds and statin 4. ASA 5. Will consider outpt MPI and outpt TTE Justicifation of Admission Dx: Justifications for Admission: Justification of Admission Dx: Yes THONY LOW APRN Dec 01, 2021 16:15
[2021-12-01] MEDS ORDERED: FUROSEMIDE 40 MG/4 ML VIAL. IVP ONE (16:30)
[2021-12-01 19:18] VITALS: BP 191/95
[2021-12-01] MEDS: MIRTAZAPINE 15 MG TABLET PO SCH (20:38)
[2021-12-01] MEDS: ATORVASTATIN CALCIUM 20 MG TABLET PO SCH (20:39)
[2021-12-01] MEDS ORDERED: LOSARTAN POTASSIUM 25 MG TABLET. PO ONE (20:45)
[2021-12-01 23:08] VITALS: BP 175/95
[2021-12-02] MEDS: hydrALAZINE 20 MG/ML VIAL. IVP PRN ×2 (02:57→17:00)
[2021-12-02 03:14] VITALS: BP 184/115
[2021-12-02] MEDS: ONDANSETRON PF 4 MG/2 ML VIAL. IVP PRN ×2 (03:29→09:02)
--- NOTE | 2021-12-02 05:13 | PN ---
DATE: 12/01/2021 LOCATION: She is in room 650. SUBJECTIVE: This 76-year-old female remains hospitalized with acute hypoxic hypercarbic respiratory failure. She looks and feels much better today and is sitting on the commode. She states she does not remember actually a lot of yesterday morning time and that was when her CO2 level was, I think, quite elevated. She has urinated quite a bit. OBJECTIVE: VITAL SIGNS: Stable. She is afebrile. Blood pressures were somewhat high. Her output is greater than intake. O2 still is actually at 3 liters per nasal cannula when I saw her this morning. GENERAL: She is awake and alert. CHEST: Reveals decreased breath sounds, but wheezing is mostly resolved. HEART: Regular rate and rhythm. ABDOMEN: Benign. EXTREMITIES: No significant edema. LABORATORY DATA: Creatinine yesterday was 1.8. A V/Q scan is ordered in the ER, but lower extremity ultrasounds were negative for clots. Chest x-ray today shows improvement in interstitial infiltrates suggesting most of this is congestive heart failure as nothing else would improve that rapidly. I am going to give her another dose of Lasix today. Hopefully, we can get the oxygen down to where she goes home without it, which she was not on it before and if she needs it likely she has needed it for some time and ____ not known. ASSESSMENT: 1. Acute hypoxic respiratory failure, felt primarily due to congestive heart failure, diastolic in nature with normal systolic function, but I believe also a component of significant underlying COPD with CO2 retention. 2. Renal insufficiency. PLAN: Another dose of Lasix. Repeat labs in the morning. Agree with 6-minute walk prior to discharge, but would prefer if we can get her home without oxygen. CHARLI/MIKA DR: Connor TID: [id number]
[2021-12-02 06:06] LABS: CALCIUM 9.5 mg/dL (8.5-10.1); CREATININE 1.7 mg/dL (0.6-1.0); GFR 29.1
[2021-12-02 06:18] LABS: POTASSIUM 2.6 mmol/L (3.5-5.1)
[2021-12-02 07:00] VITALS: BP 156/99
[2021-12-02] MEDS: BUDESONIDE 0.5 MG/2 ML NEBU. NEB SCH ×2 (07:45→20:58)
[2021-12-02] MEDS ORDERED: POTASSIUM CHLORIDE 10 MEQ TABLET.ER. PO SCH (08:00)
[2021-12-02] MEDS: ALBUTEROL SULFATE 8GM INHALER. INH SCH ×4 (08:00→20:40)
[2021-12-02] MEDS ORDERED: ONDANSETRON PF 4 MG/2 ML VIAL. IVP PRN (08:30)
[2021-12-02] MEDS ORDERED: POTASSIUM CHLORIDE 20 MEQ TABLET.ER. PO ONE (09:00)
[2021-12-02] MEDS: LEVOTHYROXINE 137 MCG TABLET PO SCH (09:01)
[2021-12-02] MEDS: PANTOPRAZOLE 40 MG TABLET.DR. PO SCH (09:01)
--- NOTE | 2021-12-02 09:43 | PDOC ---
PROGRESS NOTES Date of Service: DATE: 12/02/21 TIME: 09:43 Subjective Subjective Feeling better with improvement in dyspnea Objective Objective Vital Signs Date Time Temp Pulse Resp B/P (MAP) Pulse Ox O2 Delivery O2 Flow Rate FiO2 12/02/21 09:01 106 156/99 12/02/21 08:00 Nasal Cannula 4.0 12/02/21 07:00 98.2 18 96 98.2 Intake and Output 12/02/21 07:00 Intake Total 840 ml Output Total 2852 ml Balance -2011 ml Intake Oral 840 ml Output Urine Total 2850 ml Stool Total 2 ml # Bowel Movements 1 Physical Exam Abdomen: Soft, No tenderness Extremities: No cyanosis, Other (+1 bilateral LE pitting edema) General: Alert, Oriented X3, Cooperative, No acute distress HEENT: Atraumatic, Mucous membr. moist/pink Lungs: Other (diffuse rhonchi) MUSCULOSKELETAL: Osteoarthritic changes both hands Neuro: Normal speech, Sensation intact Psych/Mental Status: Mental status NL, Mood NL Skin: No breakdown, No significant lesion Assessment Assessment 1. Acute respiratory failure with hypoxia/hypercapnea with COPD 2. AECOPD 3. Acute on chronic diastolic CHF: better compensated with diuresis 4. HTN: Blood pressure elevated 5. HLP: Statins 6. Morbid obesity 7. Chronic venous insufficiency 8. Possible CKD3 9. Hypokalemia Recommendations 1. Lasix therapy, replace potassium 2. She continues to smoke tobacco and does not utilize O2 at home. Will need ANNABELLE workup. Bipap PRN 3. Start losartan continue amlodipine 4. Will consider outpt MPI and 2D echo 5. Treat COPD exacerbation per pulmonary team Plan Plan of Care Problems Medical Problems: (1) Acute kidney injury superimposed on chronic kidney disease Status: Acute (2) COPD exacerbation Status: Acute (3) Elevated d-dimer Status: Acute (4) Hypoxemia requiring supplemental oxygen Status: Acute (5) NSTEMI (non-ST elevated myocardial infarction) Status: Acute (6) Person under investigation for COVID-19 Status: Acute Comment Review of Relevant I have reviewed the following items zakiya (where applicable) has been applied. Labs Laboratory Tests Test 12/02/21 04:00 Sodium Level 145 mmol/L (136-145) Potassium Level 2.6 mmol/L (3.5-5.1) Chloride Level 98 mmol/L (98-107) Carbon Dioxide Level 36 mmol/L (21-32) Anion Gap 11 (6-14) Blood Urea Nitrogen 21 mg/dL (7-20) Creatinine 1.7 mg/dL (0.6-1.0) Estimated GFR (Cockcroft-Gault) 29.1 Glucose Level 98 mg/dL (70-99) Calcium Level 9.5 mg/dL (8.5-10.1) Medications Current Medications Furosemide (Lasix) 40 mg 1X ONCE IVP Last administered on 12/01/21at 16:07; Start 12/01/21 at 16:30; Stop 12/01/21 at 16:31; Status DC Furosemide (Lasix) 40 mg DAILY PO ; Start 12/02/21 at 09:00 Hydralazine HCl (Apresoline Inj) 10 mg PRN Q6HRS PRN IVP ELEVATED BP, SEE COMMENTS Last administered on 12/02/21at 02:57; Start 12/01/21 at 20:30 Losartan Potassium (Cozaar) 25 mg 1X ONCE PO Last administered on 12/01/21at 20:39; Start 12/01/21 at 20:45; Stop 12/01/21 at 20:46; Status DC Losartan Potassium (Cozaar) 25 mg DAILY PO ; Start 12/02/21 at 09:00 Ondansetron HCl (Zofran) 4 mg PRN Q6HRS PRN IVP NAUSEA/VOMITING Last administered on 12/02/21at 09:02; Start 12/02/21 at 03:30 Ondansetron HCl (Zofran) 4 mg PRN Q6HRS PRN IVP NAUSEA/VOMITING; Start 12/02/21 at 08:30 Pantoprazole Sodium (Protonix) 40 mg DAILYAC PO Last administered on 12/02/21at 09:01; Start 12/02/21 at 09:00 Potassium Chloride (Klor-Con) 10 meq DAILYWBKFT PO ; Start 12/02/21 at 08:00 Potassium Chloride (Klor-Con) 40 meq 1X ONCE PO ; Start 12/02/21 at 09:00; Stop 12/02/21 at 09:01; Status DC Vitals/I & O Vital Sign - Last 24 Hours 12/01/21 12/01/21 12/01/21 12/01/21 11:00 15:00 19:18 19:47 Temp 97.8 98.1 99.1 97.8 98.1 99.1 Pulse 91 83 81 Resp 18 18 16 B/P (MAP) 180/87 (118) 159/92 (114) 191/95 (127) Pulse Ox 95 94 93 O2 Delivery Nasal Cannula Nasal Cannula Nasal Cannula Nasal Cannula O2 Flow Rate 4.0 4.0 4.0 4.0 12/01/21 12/01/21 12/01/21 12/02/21 20:39 20:45 23:08 02:57 Temp 98.6 98.6 Pulse 82 84 94 Resp 20 B/P (MAP) 191/95 175/95 (121) 184/115 Pulse Ox 95 O2 Delivery Nasal Cannula Nasal Cannula O2 Flow Rate 3.0 4.0 12/02/21 12/02/21 12/02/21 12/02/21 03:14 07:00 08:00 09:01 Temp 96.4 98.2 96.4 98.2 Pulse 94 106 106 Resp 18 B/P (MAP) 184/115 (138) 156/99 (118) 156/99 Pulse Ox 98 96 O2 Delivery Nasal Cannula Nasal Cannula Nasal Cannula O2 Flow Rate 4.0 4.0 4.0 Intake and Output 12/01/21 12/01/21 12/02/21 15:00 23:00 07:00 Intake Total 600 ml 240 ml 0 ml Output Total 501 ml 1551 ml 800 ml Balance 99 ml -1311 ml -800 ml SHALINI CAMARGO MD Dec 02, 2021 09:43
--- NOTE | 2021-12-02 09:58 | PN ---
DATE: 12/02/2021 LOCATION: She is in room 650. SUBJECTIVE: This 76-year-old female admitted with acute hypoxic hypercarbic respiratory failure, felt to be due to combination of congestive heart failure as well as exacerbation of COPD. She has baseline renal insufficiency, which predates the hospitalization and has not really been any worse during the stay. She is undergoing diuresis and has improvement in her shortness of breath and symptomatology since admission, however, still remains on 3-4 liters per nasal cannula O2. She did diurese again nicely yesterday with 2000 negative fluid balance, but has severe hypokalemia this morning at 2.6 and replacement has been ordered. OBJECTIVE: VITAL SIGNS: Stable. She is afebrile. HEAD, EYES, EARS, NOSE AND THROAT: Remarkable for glasses and nasal cannula O2. CHEST: Reveals somewhat decreased breath sounds and expiratory and inspiratory wheezing. HEART: Regular rate and rhythm. ABDOMEN: Benign. EXTREMITIES: No significant edema. LABORATORY DATA: Potassium this morning is 2.6. Creatinine is stable at 1.7. ASSESSMENT: 1. Acute hypoxic hypercarbic respiratory failure, felt due to congestive heart failure with a component of an exacerbation of CO2. 2. Renal insufficiency. 3. Hypokalemia. 4. Nausea with some vomiting this morning. PLAN: Add PPI. Replace potassium. We will hold off on more brisk diuresis today with potassium. Hopefully, we will be able to decrease O2 to room air by the time of discharge, which was her baseline prior to admission. VIJAY/JUSTA DR: Connor TID: [id number]
[2021-12-02] MEDS: SERTRALINE 50 MG TABLET. PO SCH (10:22)
[2021-12-02] MEDS: FUROSEMIDE 40 MG TABLET. PO SCH (10:22)
[2021-12-02] MEDS: CYCLOBENZAPRINE 10 MG TABLET. PO SCH ×3 (10:22→20:43)
[2021-12-02] MEDS: LOSARTAN POTASSIUM 25 MG TABLET. PO SCH (10:23)
[2021-12-02] MEDS: clonazePAM 0.5 MG TABLET PO SCH ×2 (10:23→20:39)
[2021-12-02 11:00] VITALS: BP 160/90
[2021-12-02] MEDS: POTASSIUM CHLORIDE 10MEQ 100 ML IV SCH ×4 (11:22→15:31)
--- NOTE | 2021-12-02 11:22 | PDOC ---
PULMONARY PROGRESS NOTES DATE: 12/02/21 TIME: 11:22 Subjective Feels much better. Had some abdominal pain last night Vitals Vital Signs Date Time Temp Pulse Resp B/P (MAP) Pulse Ox O2 Delivery O2 Flow Rate FiO2 12/02/21 10:23 97 166/95 12/02/21 08:00 Nasal Cannula 4.0 12/02/21 07:00 98.2 18 96 98.2 General: Alert, No acute distress Lungs: Clear Cardiovascular: S1 Abdomen: Soft, Other (Obese) Extremities: Other (1+ pitting edema) Labs Laboratory Tests Test 12/02/21 04:00 Sodium Level 145 mmol/L (136-145) Potassium Level 2.6 mmol/L (3.5-5.1) Chloride Level 98 mmol/L (98-107) Carbon Dioxide Level 36 mmol/L (21-32) Anion Gap 11 (6-14) Blood Urea Nitrogen 21 mg/dL (7-20) Creatinine 1.7 mg/dL (0.6-1.0) Estimated GFR (Cockcroft-Gault) 29.1 Glucose Level 98 mg/dL (70-99) Calcium Level 9.5 mg/dL (8.5-10.1) Laboratory Tests Test 12/02/21 04:00 Sodium Level 145 mmol/L (136-145) Potassium Level 2.6 mmol/L (3.5-5.1) Chloride Level 98 mmol/L (98-107) Carbon Dioxide Level 36 mmol/L (21-32) Anion Gap 11 (6-14) Blood Urea Nitrogen 21 mg/dL (7-20) Creatinine 1.7 mg/dL (0.6-1.0) Estimated GFR (Cockcroft-Gault) 29.1 Glucose Level 98 mg/dL (70-99) Calcium Level 9.5 mg/dL (8.5-10.1) Medications Active Scripts Medications Dose Route/Sig Max Daily Dose Days Date Category Atorvastatin Calcium 20 Mg Tablet 20 Mg PO HS 11/29/21 Reported Klonopin (Clonazepam) 0.5 Mg Tablet 0.5 Mg PO BID 11/29/21 Reported Cyclobenzaprine Hcl 10 Mg Tablet 10 Mg PO TID 11/29/21 Reported Mirtazapine 15 Mg Tablet 1 Tab PO QHS 11/29/21 Reported Dulera 100 Mcg/5 Mcg Inhaler (Mometasone/Formoterol) 13 Gm Hfa.aer.ad 2 Puff IH BID 11/29/21 Reported Proventil Hfa (Albuterol Sulfate) 6.7 Gm Hfa.aer.ad 1 Puff INH PRN Q6HRS PRN 11/29/21 Reported Levothyroxine Sodium 137 Mcg Tablet 137 Mcg PO DAILYAC 11/29/21 Reported Amlodipine Besylate 10 Mg Tablet 10 Mg PO DAILY 11/29/21 Reported Sertraline Hcl 100 Mg Tablet 150 Mg PO DAILY 11/29/21 Reported Comments Chest x-ray done today 12/01/2021 reviewed Resolution of interstitial edema Impression . 1. Acute on chronic hypercapnic and hypoxic respiratory failure secondary to acute diastolic congestive heart failure, acute exacerbation of chronic obstructive pulmonary disease and a component of acute cor pulmonale. 2. Abnormal chest x-ray with bilateral interstitial infiltrates, more suggestive of congestive heart failure. Resolved with diuresis. 3. Fifty years of tobaccoism, likely underlying chronic obstructive pulmonary disease with chronic hypercapnia. 4. Suspected obesity hypoventilation syndrome. 5. The patient is not vaccinated for COVID. Clinically, less likely COVID. 6. Chronic kidney disease. 7. Clinically less likely pneumonia. Plan . RECOMMENDATIONS: 1. Patient has responded to diuresis. 2. Follow up chest x-ray shows significant improvement in interstitial infiltrates. 3. Okay with discontinuation of antibiotics. 4. Will need a 6-minute walk test before discharge 5. Monitor renal function. 6. Continue bronchodilators including budesonide and albuterol. 7. Smoking cessation counseling provided. She does not appear to be interested in quitting cigarettes. 8. Discharge planning per PCP. LILI MALLORY MD Dec 02, 2021 11:22
[2021-12-02 14:05] VITALS: BP 173/94
[2021-12-02 19:00] VITALS: BP_SYST 168; BP_SYST 173; BP_DIAS 83; BP_DIAS 94
[2021-12-02] MEDS: ATORVASTATIN CALCIUM 20 MG TABLET PO SCH (20:39)
[2021-12-02] MEDS: MIRTAZAPINE 15 MG TABLET PO SCH (20:39)
[2021-12-02 23:00] VITALS: BP 151/77
[2021-12-03 02:40] VITALS: BP 156/84
[2021-12-03 05:41] LABS: CALCIUM 8.6 mg/dL (8.5-10.1); CREATININE 1.6 mg/dL (0.6-1.0); GFR 31.3
[2021-12-03 05:45] LABS: POTASSIUM 2.8 mmol/L (3.5-5.1)
[2021-12-03 07:00] VITALS: BP 165/91
[2021-12-03] MEDS: BUDESONIDE 0.5 MG/2 ML NEBU. NEB SCH ×2 (07:31→20:54)
[2021-12-03] MEDS: ALBUTEROL SULFATE 8GM INHALER. INH SCH ×4 (08:00→21:06)
--- NOTE | 2021-12-03 08:27 | PDOC ---
PROGRESS NOTES Date of Service: DATE: 12/03/21 TIME: 08:27 Subjective Subjective Feeling better with improvement in dyspnea, denied any chest pain Objective Objective Vital Signs Date Time Temp Pulse Resp B/P (MAP) Pulse Ox O2 Delivery O2 Flow Rate FiO2 12/03/21 07:33 94 Nasal Cannula 2.0 12/03/21 07:00 99.3 85 18 165/91 (115) 99.3 Intake and Output 12/03/21 07:00 Intake Total 875 ml Output Total 901 ml Balance -26 ml Intake Oral 875 ml Output Urine Total 900 ml Stool Total 1 ml # Voids 1 Physical Exam Abdomen: Soft, No tenderness Extremities: No cyanosis, Other (+1 bilateral LE pitting edema) General: Alert, Oriented X3, Cooperative, No acute distress HEENT: Atraumatic, Mucous membr. moist/pink Lungs: Other (diffuse rhonchi) MUSCULOSKELETAL: Osteoarthritic changes both hands Neuro: Normal speech, Sensation intact Psych/Mental Status: Mental status NL, Mood NL Skin: No breakdown, No significant lesion Assessment Assessment 1. Acute respiratory failure with hypoxia/hypercapnea with COPD 2. AECOPD 3. Acute on chronic diastolic CHF: better compensated with diuresis 4. HTN: Blood pressure better controlled 5. HLP: Statins 6. Morbid obesity 7. Chronic venous insufficiency 8. Possible CKD3 9. Hypokalemia Recommendations 1. Lasix therapy, replace potassium 2. She continues to smoke tobacco and does not utilize O2 at home. Will need ANNABELLE workup. Bipap PRN 3. Continue losartan and amlodipine 4. Will consider outpt MPI and 2D echo 5. Treat COPD exacerbation per pulmonary team Plan Plan of Care Problems Medical Problems: (1) Acute kidney injury superimposed on chronic kidney disease Status: Acute (2) COPD exacerbation Status: Acute (3) Elevated d-dimer Status: Acute (4) Hypoxemia requiring supplemental oxygen Status: Acute (5) NSTEMI (non-ST elevated myocardial infarction) Status: Acute (6) Person under investigation for COVID-19 Status: Acute Comment Review of Relevant I have reviewed the following items zakiya (where applicable) has been applied. Labs Laboratory Tests Test 12/03/21 03:30 Sodium Level 143 mmol/L (136-145) Potassium Level 2.8 mmol/L (3.5-5.1) Chloride Level 100 mmol/L (98-107) Carbon Dioxide Level 36 mmol/L (21-32) Anion Gap 7 (6-14) Blood Urea Nitrogen 15 mg/dL (7-20) Creatinine 1.6 mg/dL (0.6-1.0) Estimated GFR (Cockcroft-Gault) 31.3 Glucose Level 118 mg/dL (70-99) Calcium Level 8.6 mg/dL (8.5-10.1) Medications Current Medications Furosemide (Lasix) 40 mg DAILY PO Last administered on 12/02/21at 10:22; Start 12/02/21 at 09:00 Losartan Potassium (Cozaar) 25 mg DAILY PO Last administered on 12/02/21at 10:23; Start 12/02/21 at 09:00 Ondansetron HCl (Zofran) 4 mg PRN Q6HRS PRN IVP NAUSEA/VOMITING; Start 12/02/21 at 08:30 Pantoprazole Sodium (Protonix) 40 mg DAILYAC PO Last administered on 12/02/21at 09:01; Start 12/02/21 at 09:00 Potassium Chloride/Water 100 ml @ 100 mls/hr Q1H IV Last administered on 12/02/21at 15:31; Start 12/02/21 at 11:00; Stop 12/02/21 at 14:59; Status DC Potassium Chloride (Klor-Con) 40 meq 1X ONCE PO ; Start 12/02/21 at 09:00; Stop 12/02/21 at 10:28; Status DC Potassium Chloride (Klor-Con) 40 meq BIDWMEALS PO ; Start 12/03/21 at 08:00 Vitals/I & O Vital Sign - Last 24 Hours 12/02/21 12/02/21 12/02/21 12/02/21 09:01 10:23 11:00 14:05 Temp 98.8 98.8 98.8 98.8 Pulse 106 97 95 90 Resp 18 20 B/P (MAP) 156/99 166/95 160/90 (113) 173/94 (120) Pulse Ox 96 92 O2 Delivery Nasal Cannula Nasal Cannula O2 Flow Rate 4.0 4.0 12/02/21 12/02/21 12/02/21 12/02/21 17:00 19:00 20:11 20:58 Temp 98.8 98.8 Pulse 84 86 Resp 18 B/P (MAP) 172/95 168/83 (111) Pulse Ox 96 97 O2 Delivery Nasal Cannula Nasal Cannula Nasal Cannula O2 Flow Rate 3.0 4.0 3.0 12/02/21 12/03/21 12/03/21 12/03/21 23:00 02:40 07:00 07:33 Temp 98.1 98.1 99.3 98.1 98.1 99.3 Pulse 81 83 85 Resp 18 18 18 B/P (MAP) 151/77 (101) 156/84 (108) 165/91 (115) Pulse Ox 95 91 94 94 O2 Delivery Nasal Cannula Nasal Cannula Nasal Cannula Nasal Cannula O2 Flow Rate 3.0 3.0 3.0 2.0 Intake and Output 12/02/21 12/02/21 12/03/21 15:00 23:00 07:00 Intake Total 475 ml 400 ml Output Total 401 ml 500 ml Balance 74 ml 400 ml -500 ml SHALINI CAMARGO MD Dec 03, 2021 08:27
[2021-12-03] MEDS: FUROSEMIDE 40 MG TABLET. PO SCH (09:00)
[2021-12-03] MEDS: CYCLOBENZAPRINE 10 MG TABLET. PO SCH ×3 (09:06→20:09)
[2021-12-03] MEDS: SERTRALINE 50 MG TABLET. PO SCH (09:06)
[2021-12-03] MEDS: LOSARTAN POTASSIUM 25 MG TABLET. PO SCH (09:07)
[2021-12-03] MEDS: PANTOPRAZOLE 40 MG TABLET.DR. PO SCH (09:07)
[2021-12-03] MEDS: clonazePAM 0.5 MG TABLET PO SCH ×2 (09:07→20:09)
[2021-12-03] MEDS: POTASSIUM CHLORIDE 20 MEQ TABLET.ER. PO SCH ×4 (09:08→19:00)
[2021-12-03] MEDS: LEVOTHYROXINE 137 MCG TABLET PO SCH (10:06)
--- NOTE | 2021-12-03 10:08 | PDOC ---
PULMONARY PROGRESS NOTES DATE: 12/03/21 TIME: 10:07 Subjective Feels much better. No further abdominal pain Vitals Vital Signs Date Time Temp Pulse Resp B/P (MAP) Pulse Ox O2 Delivery O2 Flow Rate FiO2 12/03/21 09:07 85 165/91 12/03/21 07:33 94 Nasal Cannula 2.0 12/03/21 07:00 99.3 18 99.3 General: Alert, No acute distress Lungs: Clear Cardiovascular: S1 Abdomen: Soft, Other (Obese) Extremities: Other (1+ pitting edema) Labs Laboratory Tests Test 12/02/21 04:00 12/03/21 03:30 Sodium Level 145 mmol/L (136-145) 143 mmol/L (136-145) Potassium Level 2.6 mmol/L (3.5-5.1) 2.8 mmol/L (3.5-5.1) Chloride Level 98 mmol/L (98-107) 100 mmol/L (98-107) Carbon Dioxide Level 36 mmol/L (21-32) 36 mmol/L (21-32) Anion Gap 11 (6-14) 7 (6-14) Blood Urea Nitrogen 21 mg/dL (7-20) 15 mg/dL (7-20) Creatinine 1.7 mg/dL (0.6-1.0) 1.6 mg/dL (0.6-1.0) Estimated GFR (Cockcroft-Gault) 29.1 31.3 Glucose Level 98 mg/dL (70-99) 118 mg/dL (70-99) Calcium Level 9.5 mg/dL (8.5-10.1) 8.6 mg/dL (8.5-10.1) Laboratory Tests Test 12/03/21 03:30 Sodium Level 143 mmol/L (136-145) Potassium Level 2.8 mmol/L (3.5-5.1) Chloride Level 100 mmol/L (98-107) Carbon Dioxide Level 36 mmol/L (21-32) Anion Gap 7 (6-14) Blood Urea Nitrogen 15 mg/dL (7-20) Creatinine 1.6 mg/dL (0.6-1.0) Estimated GFR (Cockcroft-Gault) 31.3 Glucose Level 118 mg/dL (70-99) Calcium Level 8.6 mg/dL (8.5-10.1) Medications Active Scripts Medications Dose Route/Sig Max Daily Dose Days Date Category Atorvastatin Calcium 20 Mg Tablet 20 Mg PO HS 11/29/21 Reported Klonopin (Clonazepam) 0.5 Mg Tablet 0.5 Mg PO BID 11/29/21 Reported Cyclobenzaprine Hcl 10 Mg Tablet 10 Mg PO TID 11/29/21 Reported Mirtazapine 15 Mg Tablet 1 Tab PO QHS 11/29/21 Reported Dulera 100 Mcg/5 Mcg Inhaler (Mometasone/Formoterol) 13 Gm Hfa.aer.ad 2 Puff IH BID 11/29/21 Reported Proventil Hfa (Albuterol Sulfate) 6.7 Gm Hfa.aer.ad 1 Puff INH PRN Q6HRS PRN 11/29/21 Reported Levothyroxine Sodium 137 Mcg Tablet 137 Mcg PO DAILYAC 11/29/21 Reported Amlodipine Besylate 10 Mg Tablet 10 Mg PO DAILY 11/29/21 Reported Sertraline Hcl 100 Mg Tablet 150 Mg PO DAILY 11/29/21 Reported Comments Chest x-ray done today 12/01/2021 reviewed Resolution of interstitial edema Impression . 1. Acute on chronic hypercapnic and hypoxic respiratory failure secondary to acute diastolic congestive heart failure, acute exacerbation of chronic obstructive pulmonary disease and a component of acute cor pulmonale. 2. Abnormal chest x-ray with bilateral interstitial infiltrates, more suggestive of congestive heart failure. Resolved with diuresis. 3. Fifty years of tobaccoism, likely underlying chronic obstructive pulmonary disease with chronic hypercapnia. 4. Suspected obesity hypoventilation syndrome. 5. The patient is not vaccinated for COVID. Clinically, less likely COVID. 6. Chronic kidney disease. 7. Clinically less likely pneumonia. Plan . RECOMMENDATIONS: 1. Patient has responded to diuresis. 2. Follow up chest x-ray shows significant improvement in interstitial infiltrates. 3. OFF antibiotics. 4. Arrange home oxygen based on 6-minute walk test. 5. Monitor renal function. 6. Continue bronchodilators including budesonide and albuterol. 7. Smoking cessation counseling provided. She does not appear to be interested in quitting cigarettes. 8. Discharge planning per PCP. LILI MALLORY MD Dec 03, 2021 10:08
[2021-12-03 11:00] VITALS: BP 147/87
[2021-12-03 15:00] VITALS: BP 134/76
--- NOTE | 2021-12-03 18:39 | PN ---
DATE: 12/03/2021 LOCATION: She is in room 650. SUBJECTIVE: This 76-year-old female admitted with acute hypoxic hypercarbic respiratory failure, felt to be a combination of congestive heart failure as well as an exacerbation of COPD. She has baseline renal insufficiency and this remains relatively stable despite the diuresis with output greater than intake and improvement in her infiltrates and symptomatology with diuresis. She is down to 2 liters this morning when I see her daughter is present. Severe hypokalemia persists, but somewhat better at 2.8 this morning and double replacement has been ordered. OBJECTIVE: VITAL SIGNS: Stable. She is afebrile. She is awake and alert. HEAD, EYES, EARS, NOSE AND THROAT: Remarkable for glasses. Nasal cannula O2. CHEST: Reveals somewhat decreased breath sounds and less wheezing this morning. HEART: Regular rate and rhythm. ABDOMEN: Benign. EXTREMITIES: She has trace to 1+ edema. NEUROLOGIC: She is intact. LABORATORY DATA: Potassium this morning is 2.8 and creatinine is stable at 1.6. She had approximately 2000 out over intake yesterday and no weight recorded from today. ASSESSMENT: 1. Acute hypoxic hypercarbic respiratory failure, felt due to congestive heart failure with component of exacerbation of chronic obstructive pulmonary disease. 2. Renal insufficiency. 3. Hypokalemia. PLAN: Continue replacement of potassium, diuresis, decreased O2 as can. Once potassium is replaced and back up to normal, we will plan on a 6-minute walk for O2 at discharge unless we were able to taper the oxygen between now and then. GIUSEPPE DR: Connor TID: [id number]
[2021-12-03] MEDS: ENOXAPARIN 40 MG/0.4 ML SYRINGE. SQ SCH (18:45)
[2021-12-03 19:00] VITALS: BP 152/91
[2021-12-03] MEDS: ATORVASTATIN CALCIUM 20 MG TABLET PO SCH (20:09)
[2021-12-03] MEDS: MIRTAZAPINE 15 MG TABLET PO SCH (20:10)
[2021-12-03 22:05] VITALS: BP 185/95
[2021-12-04] VITALS (7 sets, daily range): BP systolic 141–169; BP diastolic 76–100
[2021-12-04] MEDS: hydrALAZINE 20 MG/ML VIAL. IVP PRN (02:41)
[2021-12-04] MEDS: PANTOPRAZOLE 40 MG TABLET.DR. PO SCH (06:26)
[2021-12-04] MEDS: LEVOTHYROXINE 137 MCG TABLET PO SCH (06:26)
[2021-12-04] MEDS: BUDESONIDE 0.5 MG/2 ML NEBU. NEB SCH ×2 (07:07→19:20)
[2021-12-04] MEDS: SERTRALINE 50 MG TABLET. PO SCH (07:52)
[2021-12-04] MEDS: FUROSEMIDE 40 MG TABLET. PO SCH (07:52)
[2021-12-04] MEDS: CYCLOBENZAPRINE 10 MG TABLET. PO SCH ×3 (07:53→22:03)
[2021-12-04] MEDS: clonazePAM 0.5 MG TABLET PO SCH ×2 (07:53→22:03)
[2021-12-04] MEDS: POTASSIUM CHLORIDE 20 MEQ TABLET.ER. PO SCH ×2 (07:53→17:08)
[2021-12-04] MEDS: LOSARTAN POTASSIUM 25 MG TABLET. PO SCH (07:53)
[2021-12-04] MEDS: ENOXAPARIN 40 MG/0.4 ML SYRINGE. SQ SCH ×2 (07:53→22:05)
--- NOTE | 2021-12-04 10:50 | PDOC ---
PULMONARY PROGRESS NOTES DATE: 12/04/21 TIME: 10:45 Subjective feeling better,shortness of breath improved. daughter is concerned for hypokalemia. labs pending. patient denies chest pain or dizziness. Vitals Vital Signs Date Time Temp Pulse Resp B/P (MAP) Pulse Ox O2 Delivery O2 Flow Rate FiO2 12/04/21 10:19 99.1 76 20 141/83 (102) 97 Nasal Cannula 3.0 99.1 General: Alert, No acute distress Lungs: Clear Cardiovascular: S1 Abdomen: Soft, Other (Obese) Extremities: Other (1+ pitting edema) Labs Laboratory Tests Test 12/03/21 03:30 Sodium Level 143 mmol/L (136-145) Potassium Level 2.8 mmol/L (3.5-5.1) Chloride Level 100 mmol/L (98-107) Carbon Dioxide Level 36 mmol/L (21-32) Anion Gap 7 (6-14) Blood Urea Nitrogen 15 mg/dL (7-20) Creatinine 1.6 mg/dL (0.6-1.0) Estimated GFR (Cockcroft-Gault) 31.3 Glucose Level 118 mg/dL (70-99) Calcium Level 8.6 mg/dL (8.5-10.1) Medications Active Scripts Medications Dose Route/Sig Max Daily Dose Days Date Category Atorvastatin Calcium 20 Mg Tablet 20 Mg PO HS 11/29/21 Reported Klonopin (Clonazepam) 0.5 Mg Tablet 0.5 Mg PO BID 11/29/21 Reported Cyclobenzaprine Hcl 10 Mg Tablet 10 Mg PO TID 11/29/21 Reported Mirtazapine 15 Mg Tablet 1 Tab PO QHS 11/29/21 Reported Dulera 100 Mcg/5 Mcg Inhaler (Mometasone/Formoterol) 13 Gm Hfa.aer.ad 2 Puff IH BID 11/29/21 Reported Proventil Hfa (Albuterol Sulfate) 6.7 Gm Hfa.aer.ad 1 Puff INH PRN Q6HRS PRN 11/29/21 Reported Levothyroxine Sodium 137 Mcg Tablet 137 Mcg PO DAILYAC 11/29/21 Reported Amlodipine Besylate 10 Mg Tablet 10 Mg PO DAILY 11/29/21 Reported Sertraline Hcl 100 Mg Tablet 150 Mg PO DAILY 11/29/21 Reported Comments Chest x-ray done today 12/01/2021 reviewed Resolution of interstitial edema Impression . 1. Acute on chronic hypercapnic and hypoxic respiratory failure secondary to acute diastolic congestive heart failure, acute exacerbation of chronic obstr uctive pulmonary disease and a component of acute cor pulmonale. 2. Abnormal chest x-ray with bilateral interstitial infiltrates, more suggestive of congestive heart failure. Resolved with diuresis. 3. Fifty years of tobaccoism, likely underlying chronic obstructive pulmonary disease with chronic hypercapnia. 4. Suspected obesity hypoventilation syndrome. 5. The patient is not vaccinated for COVID. Clinically, less likely COVID. 6. Chronic kidney disease. 7. Clinically less likely pneumonia. Plan . 12/04 continue with diuresis and potassium replacement, monitor renal function. will need 6 minute walk test, will likely need home oxygen encourage smoking cessation continue bronchodialators as ordered RECOMMENDATIONS: 1. Patient has responded to diuresis. 2. Follow up chest x-ray shows significant improvement in interstitial infiltrates. 3. OFF antibiotics. 4. Arrange home oxygen based on 6-minute walk test. 5. Monitor renal function. 6. Continue bronchodilators including budesonide and albuterol. 7. Smoking cessation counseling provided. She does not appear to be interested in quitting cigarettes. 8. Discharge planning per PCP. LILI MALLORY MD Dec 04, 2021 10:50
--- NOTE | 2021-12-04 11:01 | PDOC ---
RANDI JENNINGS APRN 12/04/21 1101: CARDIO Progress Notes Date and Time Date of Service 12/04/21 Time of Evaluation 1100 Subjective Subjective: No Chest Pain, No shortness of breath, No Palpitations Vitals Vitals Vital Signs Date Time Temp Pulse Resp B/P (MAP) Pulse Ox O2 Delivery O2 Flow Rate FiO2 12/04/21 10:19 99.1 76 20 141/83 (102) 97 Nasal Cannula 3.0 99.1 Weight Weight [ ] Input and Output Intake and Output Intake and Output 12/04/21 07:00 Intake Total 1145 ml Output Total 701 ml Balance 444 ml Intake Oral 1145 ml Output Urine Total 700 ml Stool Total 1 ml Physical Exam HEENT: Neck Supple W Full Motion Chest: Symmetric LUNGS: Other (diminished bases) Heart: RRR (SR) Abdomen: Soft N/T, Other (obese) Extremities: Other (1+ bilateral LE piptting edema) Neurology: alert, oriented, follow commands Assessment Assessment 1. Acute respiratory failure with AECOPD, CHF 2. Acute on chronic diastolic CHF: better compensated with diuresis 3. HTN: Blood pressure better controlled 4. HLP: Statins 5. Morbid obesity 6. Chronic venous insufficiency 7. CKD 8. Hypokalemia; replaced Recommendations Lasix therapy Potassium replacement Reinforced tobacco cessation Outpatient ANNABELLE workup. Bipap PRN Will consider outpt MPI and 2D echo Ongoing pulmonary optimization Justicifation of Admission Dx: Justifications for Admission: Justification of Admission Dx: Yes SHALINI CAMARGO MD 12/04/21 1541: CARDIO Progress Notes Assessment Assessment Patient seen and examined. Agree with ICT EDUCATOR's assessment and plan. Acute on chronic diastolic heart failure better compensated. Continue current treatment for COPD exacerbation. Plan 2D echo and ischemic evaluation outpatient RANDI JENNINGS APRN Dec 04, 2021 11:01 SHALINI CAMARGO MD Dec 04, 2021 15:41
[2021-12-04 11:43] LABS: CREATININE 1.7 mg/dL (0.6-1.0); GFR 29.1; POTASSIUM 3.5 mmol/L (3.5-5.1)
--- NOTE | 2021-12-04 12:45 | PN ---
DATE: 12/04/2021 LOCATION: She is in room 650. SUBJECTIVE: This 76-year-old female admitted with acute hypoxic hypercarbic respiratory failure, felt to be due to combination of congestive heart failure, primarily as well as an exacerbation of COPD. She has baseline renal insufficiency and this has remained relatively stable; however, she has become quite hypokalemic with diuresis and this is being replaced. No labs are available this morning at the time of me seeing her to make plans for the day. O2 is down to 2 liters and I would hope she could go maybe without O2, but it will yet to be seen, but first thing has to happen is her potassium get back in the normal range before discharge is contemplated. OBJECTIVE: VITAL SIGNS: Stable. She is afebrile. She is awake and alert. HEAD, EYES, EARS, NOSE AND THROAT: Remarkable for glasses. She has O2 at 2 liters per nasal cannula. CHEST: Reveals decreased breath sounds. HEART: Regular rate and rhythm. ABDOMEN: Benign. EXTREMITIES: Edema is down to trace. NEUROLOGIC: She is intact. Again a.m. labs are pending. ASSESSMENT: 1. Acute hypoxic hypercarbic respiratory failure, felt due to congestive heart failure with a component exacerbation of chronic obstructive pulmonary disease. 2. Renal insufficiency. 3. Hypokalemia. PLAN: Await a.m. labs. Potassium is up in a reasonable range, can consider a 6-minute walk to determine O2 needs and follow up further as an outpatient. YURI/DANIEL/MIKA DR: Connor TID: [id number]
--- NOTE | 2021-12-04 14:50 | NUR ---
SS following up with discharge planning. SS reviewed pt chart and discussed with pt RN. Pt is currently requiring oxygen at three liters nasal canula. COVID19 negative. Pt has no home oxygen. Cardiology and Pulmonology following. Six minute walk ordered. SS will continue to follow for discharge planning. Addendum: 12/04/21 at 1618 by ELKIN FUENTES SS Six minute walk completed. No home oxygen recommended.
[2021-12-04] MEDS: ALBUTEROL SULFATE 8GM INHALER. INH SCH (19:20)
[2021-12-04] MEDS: MIRTAZAPINE 15 MG TABLET PO SCH (22:03)
[2021-12-04] MEDS: ATORVASTATIN CALCIUM 20 MG TABLET PO SCH (22:03)
--- NOTE | 2021-12-04 22:15 | NUR ---
Pt's oxygen saturation down to 75% while pt was sleeping. Woke pt up and placed pt on 2L NC. Pt's O2 sat recovered to the 90's. Call light within reach. Will monitor.
[2021-12-05 02:36] VITALS: BP 185/91
[2021-12-05 05:30] LABS: CALCIUM 9.1 mg/dL (8.5-10.1); CREATININE 1.7 mg/dL (0.6-1.0); GFR 29.1; POTASSIUM 3.9 mmol/L (3.5-5.1)
[2021-12-05 07:00] VITALS: BP 181/90
[2021-12-05] MEDS ORDERED: LOSA-73 PO (07:47)
[2021-12-05] MEDS ORDERED: FURO40TA4 PO (07:47)
[2021-12-05] MEDS ORDERED: POTA20TA4 PO (07:47)
--- NOTE | 2021-12-05 08:13 | DS ---
DATE OF DISCHARGE: 12/05/2021 PRIMARY DIAGNOSES: 1. Acute hypoxic hypercarbic respiratory failure. 2. Acute diastolic congestive heart failure with fluid overload. 3. Chronic obstructive pulmonary disease with likely exacerbation. 4. Chronic renal insufficiency. 5. Profound hypokalemia with diuresis, resolved. 6. Likely sleep apnea with hypoxic desaturations at night during sleep. 7. Hypertension. CHIEF COMPLAINT AND HISTORY OF PRESENT ILLNESS: This 76-year-old female presented to the Emergency Room after being short of breath for 5 days or so with a cough eventually getting bad enough to call an ambulance. Her O2 sat in the field per EMS was 55%. She was placed on oxygen with O2 sats better by arrival at the Emergency Room, but blood gases showing hypercarbia and respiratory acidosis. She had an elevated BNP consistent with overload and a chest x-ray consistent with pulmonary edema. Creatinine was 1.7 on admission. She was COVID negative. SUMMARY OF STAY: The patient was admitted, diuresed, initially was on BiPAP, improved on a daily basis with brisk diuresis, became quite hypokalemic with replacement ongoing. She was normal on the day of discharge. She was noted on room air to have desats during the sleep on the night prior to discharge. As an outpatient, sleep study will be done. Cardiology also wanted an outpatient ischemic evaluation as well as echocardiogram on followup and I will leave it up to them to settle that up. Blood pressures were elevated throughout the majority of his stay and losartan was added by Cardiology for the same and will likely need further adjustments of this as an outpatient. DISPOSITION: The patient is discharged to home. Low sodium diet. Activity as tolerated. Office this Saturday, at which time, she will need potassium and renal function checked and set up for an outpatient sleep study. DISCHARGE MEDICATIONS: Listed on the med rec and have been addressed. LYSSA DR: Connor TID: [id number]
[2021-12-05] MEDS: CYCLOBENZAPRINE 10 MG TABLET. PO SCH (08:51)
[2021-12-05] MEDS: POTASSIUM CHLORIDE 20 MEQ TABLET.ER. PO SCH (08:52)
[2021-12-05] MEDS: PANTOPRAZOLE 40 MG TABLET.DR. PO SCH (08:52)
[2021-12-05] MEDS: FUROSEMIDE 40 MG TABLET. PO SCH (08:52)
[2021-12-05] MEDS: SERTRALINE 50 MG TABLET. PO SCH (08:52)
[2021-12-05] MEDS: ENOXAPARIN 40 MG/0.4 ML SYRINGE. SQ SCH (08:53)
[2021-12-05] MEDS: clonazePAM 0.5 MG TABLET PO SCH (08:53)
[2021-12-05 08:55] VITALS: BP 181/90
[2021-12-05] MEDS: LEVOTHYROXINE 137 MCG TABLET PO SCH (08:55)
[2021-12-05] MEDS ORDERED: LOSARTAN POTASSIUM 50 MG TABLET. PO SCH (09:00)
[2021-12-05] MEDS: BUDESONIDE 0.5 MG/2 ML NEBU. NEB SCH (09:01)
--- NOTE | 2021-12-05 09:31 | PDOC ---
RANDI JENNINGS STEM LEAD FORMER 12/05/21 0931: CARDIO Progress Notes Date and Time Date of Service 12/05/21 Time of Evaluation 1050 Subjective Subjective: No Chest Pain, No shortness of breath, No Palpitations, No Dizziness Vitals Vitals Vital Signs Date Time Temp Pulse Resp B/P (MAP) Pulse Ox O2 Delivery O2 Flow Rate FiO2 12/05/21 09:02 97 Nasal Cannula 2.0 12/05/21 08:55 86 181/90 12/05/21 07:00 97.9 18 97.9 Weight Weight [ ] Input and Output Intake and Output Intake and Output 12/05/21 07:00 Intake Total 1850 ml Balance 1850 ml Intake Oral 1850 ml # Voids 4 # Bowel Movements 1 Laboratory Labs Laboratory Tests Test 12/04/21 11:00 12/05/21 04:05 Sodium Level 143 mmol/L (136-145) 144 mmol/L (136-145) Potassium Level 3.5 mmol/L (3.5-5.1) 3.9 mmol/L (3.5-5.1) Chloride Level 102 mmol/L (98-107) 104 mmol/L (98-107) Carbon Dioxide Level 34 mmol/L (21-32) 33 mmol/L (21-32) Anion Gap 7 (6-14) 7 (6-14) Blood Urea Nitrogen 14 mg/dL (7-20) 14 mg/dL (7-20) Creatinine 1.7 mg/dL (0.6-1.0) 1.7 mg/dL (0.6-1.0) Estimated GFR (Cockcroft-Gault) 29.1 29.1 Glucose Level 136 mg/dL (70-99) 104 mg/dL (70-99) Calcium Level 9.0 mg/dL (8.5-10.1) 9.1 mg/dL (8.5-10.1) Magnesium Level 1.7 mg/dL (1.8-2.4) Physical Exam HEENT: Neck Supple W Full Motion Chest: Symmetric LUNGS: Other (diminished bases) Heart: RRR (SR) Abdomen: Soft N/T, Other (obese) Extremities: Other (1+ bilateral LE piptting edema) Neurology: alert, oriented, follow commands Assessment Assessment 1. Acute respiratory failure with AECOPD, CHF 2. Acute on chronic diastolic CHF: better compensated with diuresis 3. HTN: Blood pressure better controlled 4. HLP: Statins 5. Morbid obesity 6. Chronic venous insufficiency 7. CKD 8. Hypokalemia; replaced Recommendations Lasix therapy Reinforced tobacco cessation Outpatient ANNABELLE workup. Outpatient MPI and 2D echo as arranged Ongoing pulmonary optimization Follow up in our office as scheduled Justicifation of Admission Dx: Justifications for Admission: Justification of Admission Dx: Yes SHALINI CAMARGO MD 12/05/21 1557: CARDIO Progress Notes Assessment Assessment Patient seen and examined. Agree with HORSE TREKKING GUIDE's assessment and plan. Acute on chronic diastolic heart failure better compensated. Continue current treatment for COPD exacerbation. Plan 2D echo and ischemic evaluation outpatient RANDI JENNINGS APRN Dec 05, 2021 09:31 SHALINI CAMARGO MD Dec 05, 2021 15:57
--- NOTE | 2021-12-05 11:08 | NUR ---
DISCHARGED PATIENT TO HOME. DISCHARGE INSTRUCTIONS GIVEN. PIV AND HEART MONITOR REMOVED.ESCORTED PATIET OFF UIT PER WHEELCHAIR INTO A PRIVATE VEHICLE.
== END 2021-12-05 11:01 | disposition home or self-care (01) | DRG 280 ==
LOC: ER 17:32 → 6 SOUTH 19:00
PROVIDERS: ADMIT Family Medicine; ATTEND Family Medicine
PROC: 5A09357 Assistance with Respiratory Ventilation, Less than 24 Consecutive Hours, Continuous Positive Airway Pressure (ICD-10-PCS; principal; 2021-11-29)
PROC: 5A09357 Assistance with Respiratory Ventilation, Less than 24 Consecutive Hours, Continuous Positive Airway Pressure (ICD-10-PCS; 2021-11-30)
DX: I21.4 Non-ST elevation (NSTEMI) myocardial infarction (principal); J96.21 Acute and chronic respiratory failure with hypoxia; I50.43 Acute on chronic combined systolic (congestive) and diastolic (congestive) heart failure; J96.22 Acute and chronic respiratory failure with hypercapnia; I13.0 Hypertensive heart and chronic kidney disease with heart failure and stage 1 through stage 4 chronic kidney disease, or unspecified chronic kidney disease; E87.2 Acidosis; J44.1 Chronic obstructive pulmonary disease with (acute) exacerbation; N17.9 Acute kidney failure, unspecified; Z68.42 Body mass index [BMI] 45.0-49.9, adult; E66.01 Morbid (severe) obesity due to excess calories; E78.00 Pure hypercholesterolemia, unspecified; E78.5 Hyperlipidemia, unspecified; E87.6 Hypokalemia; F17.210 Nicotine dependence, cigarettes, uncomplicated; G47.30 Sleep apnea, unspecified; I87.2 Venous insufficiency (chronic) (peripheral); N18.9 Chronic kidney disease, unspecified; Z20.822 Contact with and (suspected) exposure to COVID-19; Z82.49 Family history of ischemic heart disease and other diseases of the circulatory system; F32.A Depression, unspecified; M19.90 Unspecified osteoarthritis, unspecified site; Z88.2 Allergy status to sulfonamides; Z88.8 Allergy status to other drugs, medicaments and biological substances; Z71.6 Tobacco abuse counseling; I27.81 Cor pulmonale (chronic)
CPT/HCPCS: 36415; 36600; 71045; 80048; 80053; 82550; 82805; 83735; 83880; 84443; 84484; 85025; 85379; 87428; 93005; 93970; 94618; 94640; 94660; 94760; 96361; 96374; 96375; J0360; J0696; J1100; J1650; J1940; J2405; J3480; J7030; 99285-25; G0378; J7626

== ENCOUNTER → 2022-02-21 | Outpatient (CLI) | payer MEDICARE ==
[~2022-02-21] MED LIST changes: +AMLO-187 PO; +ATOR20TA58 PO; +CLON0.5T PO; +CYCL10TA19 PO; +FURO40TA4 PO; +LEVO137T3 PO; +LOSA-73 PO; +MIRT-7 PO; +MOME13HF2 IH; +POTA20TA4 PO; +PROVENTIL HFA6.7 G2 INH; +SERT-268 PO
--- NOTE | 2022-02-21 10:49 | RAD ---
CT HEAD/BRAIN WO Date: 02/21/2022 9:01 AM Clinical Indication: memory loss Comparison: 02/14/2018. Technique: 5 mm axial tomographic images were obtained of the head without contrast. These were view ed on brain and bone windows. One or more of the following dose reduction techniques were utilized: A utomated exposure control (AEC), Adjustment of mA and/or kV according to patient size, Use of iterati ve reconstruction technique such as ASiR, CT scan done according to ALARA and image gently/image marshall ly Findings: Mild generalized cerebral and cerebellar volume loss. Mild nonspecific periventricular hypoattenuatio n, most commonly seen with chronic small vessel ischemic disease. Calcified atherosclerosis of the bi lateral cavernous and paraclinoid internal carotid arteries. No intra- or extra-axial mass or fluid collection. No acute hemorrhage. The ventricles are normal in size, shape, and morphology. The rivera-white matter junction is normal. The subarachnoid cisterns are patent. The visualized paranasal sinuses are normal. The visualized portions of the orbits and globes are no rmal. The mastoid air cells are clear. The exploration geologist topogram shows no lytic lesion or fracture. Impression: No acute intracranial process. Mild cerebral volume loss. Mild chronic small vessel ischemic disease. Electronically signed by: Tino Webber MD (02/21/2022 10:47 AM) [facility]
== END ==
LOC: CT 09:53
PROVIDERS: ATTEND Family Medicine
DX: I65.23 Occlusion and stenosis of bilateral carotid arteries (principal); R41.3 Other amnesia; I67.82 Cerebral ischemia
CPT/HCPCS: 70450